=== PATIENT | female | born 1960 | race Caucasian/White ===

== ENCOUNTER 2018-04-18 10:39 | Observation (INO) | payer MEDICAID, SELFPAY ==
[2018-04-18 11:50] LABS: #Lymphocytes 0.6 thou/uL (1.20-3.40); #Monocytes 0.2 thou/uL (0.11-0.59); #Neutrophils 1.7 thou/uL (1.40-6.50); %Basophils 0.5 % (0.0-1.0); %Eosinophils 1.1 % (0.0-10.0); %Monocytes 7.5 % (0.0-10.0); %Neutrophils 66.9 % (42.0-75.0); Hemoglobin 10.5 g/dL (12.0-16.0); Mean Corpuscular Hemoglobin 32.1 pg (27.0-31.0); Mean Corpuscular Volume 94.5 fL (78.0-98.0); Mean Platelet Volume 7.1 fL (7.4-10.4); Platelet Count 124 thou/uL (130-400); Red Blood Cell (RBC) Count 3.28 mill/uL (4.20-5.40); White Blood Cell (WBC) Count 2.6 thou/uL (4.8-10.8)
[2018-04-18 12:01] LABS: Calcium 11.4 mg/dL (7.8-10.44); Chloride 98 mmol/L (98-107); Protein, Total 7.5 g/dL (6.0-8.3); Sodium 129 mmol/L (136-145)
[2018-04-18 12:05] LABS: CKMB 0.8 ng/mL (0-6.6); Troponin I Less than 0.010 ng/mL (< 0.028)
[2018-04-18 12:15] LABS: AST (SGOT) 27 U/L (5-34); Anion Gap 10 mmol/L (10-20); Bilirubin, Total 0.3 mg/dL (0.2-1.2); Calc. Creatinine Clearance 0 mL/min (70-130); Carbon Dioxide 25 mmol/L (22-29); Estimated GFR-MDRD 76
[2018-04-18 12:17] LABS: ALT (SGPT) 17 U/L (8-55); Albumin 3.2 g/dL (3.5-5.0); Alkaline Phosphatase 85 U/L (40-150); BUN (Urea Nitrogen) 18 mg/dL (9.8-20.1); Globulin 4.3 g/dL (2.4-3.5); Glucose 90 mg/dL (70-105); Lipase 77 U/L (8-78); Magnesium 1.4 mg/dL (1.6-2.6)
--- NOTE | 2018-04-18 12:46 | RAD ---
CHEST ONE VIEW: History: 57-year-old female with history of altered mental status. Two syncopal episodes. History of hyponatre keturah. Possible seizure. FINDINGS: Heart size is within normal limits. There is some minimal reticular nodular parenchymal changes in th e right upper lobe which have more the appearance of chronic change although certainly could represen t some very minimal early pneumonitis. No confluent pneumonia, overt edema, or pleural effusion. IMPRESSION: Minimal nonspecific reticular nodular parenchymal changes in the right upper lobe having more of a ch ronic appearance, although certainly some type of acute process including pneumonitis is a possibilit y. No confluent pneumonia. Atherosclerosis of the aorta. No old studies. POS: [facility]
--- NOTE | 2018-04-18 13:52 | CT ---
CT OF HEAD: Date: 04/21/18 COMPARISON: None. HISTORY: Syncopal episode, altered mental status. TECHNIQUE: Serial axial CT imaging is obtained at 5 mm intervals from the vertex through the skull base without contrast. FINDINGS: The sphenoid sinus is completely opacified and slightly expanded on the left. There is punctate calci fication within the secretions opacifying the left sphenoid sinus. The remaining paranasal sinuses, as well as the mastoid air cells, appear clear. There is no acute os seous abnormality noted. There is mild diffuse cerebral volume loss. There is no intracranial hemorrhage, midline shift, or ma ss effect. There is mild periventricular hypodensity suggesting a degree of small vessel disease. IMPRESSION: 1. Isolated, opacified, and expanded sphenoid sinus on the left. Isolated sphenoid sinus disease of this degree should be further assessed with a nonemergent follow-up contrast enhanced brain MRI. 2. Cerebral volume loss and small vessel disease with no intracranial hemorrhage. CODE T. POS: [facility]
--- NOTE | 2018-04-18 15:20 | HP ---
PRIMARY CARE PHYSICIAN: Carli Murray M.D. REASON FOR ADMISSION: Sent from [facility] for syncopal episode x2. HISTORY OF PRESENT ILLNESS: A 57-year-old female who has underlying HIV who was in shower and subsequently she had 2 syncopal episodes. The patient does not have any clue what happened [facility] prison, but she noticed that everyone was surrounding her when she was regaining consciousness. There was suspected seizure activity/syncope and that is why this patient was sent to emergency room for evaluation. Patient had significant weight loss for the last several months. She does have diagnosis of HIV for last 6 months. The patient reports that she was initially followed by David Gray, HIV doctor who prescribed antiretroviral therapy, but she ran out for last 2 weeks. She does not know her CD4 count. Patient is a very poor historian. The patient appears dehydrated and she has shrunken eyeball. She is cachectic. Patient also has good appetite, but she is losing weight. She denies any skin rash. She denies any trauma. REVIEW OF SYSTEMS: The following complete review of systems was negative, unless otherwise mentioned in the HPI or below: Constitutional: Weight loss or gain, ability to conduct usual activities. Skin: Rash, itching. Eyes: Double vision, pain. ENT/Mouth: Nose bleeding, neck stiffness, pain, tenderness. Cardiovascular: Palpitations, dyspnea on exertion, orthopnea. Respiratory: Shortness of breath, wheezing, cough, hemoptysis, fever or night sweats. Gastrointestinal: Poor appetite, abdominal pain, heartburn, nausea, vomiting, constipation, or diarrhea. Genitourinary: Urgency, frequency, dysuria, nocturia. Musculoskeletal: Pain, swelling. Neurologic/Psychiatric: Anxiety, depression. Allergy/Immunologic: Skin rash, bleeding tendency. Please see my HPI for pertinent positive and negative. All other review of systems reviewed and negative except as mentioned in the HPI. PAST MEDICAL HISTORY: HIV. PAST PSYCHIATRIC HISTORY: Anxiety and depression. PAST SURGICAL HISTORY: Transgender sex change in 1989 with breast implant. SOCIAL HISTORY: Patient denies any tobacco, alcohol or illicit drug abuse. She lives at [facility]. FAMILY HISTORY: No strong family history of premature coronary artery disease, stroke or cancer. ADDITIONAL INFORMATION: The patient is wheelchair bound. Her mother is taking care of her. EMERGENCY ROOM COURSE: Reviewed. ALLERGY: Sulfa CURRENT HOME MEDICATION: Remeron, HIV medication she ran out, PHYSICAL EXAMINATION: VITAL SIGNS: On arrival, blood pressure 96/63, pulse 87, respiratory rate 16, temperature 97.7, saturation 95% on room air and weight 45.3 kilograms. GENERAL: Patient is cachectic, appears malnourished. HEAD: Normocephalic, atraumatic. EYES: Sunken eyeball. Pupils round, reactive to light. ENT: Dry mucous membrane, no oral lesion, no pharyngeal erythema, no exudate, no thrush. NECK: Supple, no JVD, no thyromegaly, no carotid bruit. LUNGS: Clear to auscultation without any rhonchi or rales. CARDIAC: S1 and S2 regular. No murmur, no gallop, no rub. ABDOMEN: Soft, bowel sounds present. Shrunken abdomen. No suprapubic tenderness. BACK: Examination unremarkable, no CVA tenderness. EXTREMITIES: Upper extremity passive movement of all joints are normal. Lower extremities: No edema. Good peripheral pulsation. SKIN: No skin rash other than skin tear noted on the left leg. NEUROLOGIC: Nonfocal examination. PSYCHIATRIC: Normal affect. IMAGING DATA AND SIGNIFICANT LABORATORY DATA: EKG showing normal sinus rhythm within normal limits. CT brain based on my review, no acute intracranial process. Chest x-ray based on my review, chronic changes without any acute process. CBC: WBC 2.6, hemoglobin 10.5 and platelet 124. BMP: Sodium 129, potassium 4.0, chloride 98, carbon dioxide 25, anion gap 10, BUN 18, creatinine 0.78, glucose 90, calcium 11.4, magnesium 1.4. LFT: AST 27, ALT 17, alkaline phosphatase 85, albumin 3.2. Cardiac enzymes negative. Prolactin 34.6. EKG showing normal sinus rhythm within normal limits. ASSESSMENT AND PLAN/IMPRESSION: 1. Syncope/seizure. 2. Hyponatremia due to dehydration. 3. Hypomagnesemia. 4. Hypercalcemia due to volume depletion. 5. Leukopenia, thrombocytopenia and anemia due to human immunodeficiency virus. 6. Pancytopenia due to human immunodeficiency virus. 7. Moderate protein calorie malnutrition. 8. Anxiety and depression. 9. Human immunodeficiency virus positive. 10. Medication noncompliance. 11. Physical deconditioning. 12. Hypertension. PLAN: 1. Observation to telemetry floor, echocardiography, orthostatic vitals, MRI brain, serial cardiac enzymes to rule out acute coronary syndrome. IV fluid with NS 800 mL per hour. Repeat and check HIV and CD4 count. Replace magnesium and check magnesium tomorrow. Check TSH. 2. Deep venous thrombosis prophylaxis, SCD boots. 3. Gastrointestinal prophylaxis, Pepcid 20 mg p.o. b.i.d. Nutritional supplementation with Ensure t.i.d. CODE STATUS: The patient is FULL CODE. Patient's mother is surrogate decision maker. Disposition plan based on clinical course. If patient's condition does not improve within 24 hours, then we will consider changing to inpatient status. MTDD
[2018-04-18] MEDS ORDERED: Loratadine 10 MG TAB PO PRN (17:12)
[2018-04-18] MEDS ORDERED: Artificial Tears 18 DROP/0.9 ML EA EYE PRN (17:12)
[2018-04-18] MEDS ORDERED: Diabetic Tussin 200 MG/10 ML UDCUP PO PRN (17:12)
[2018-04-18] MEDS ORDERED: Senokot 8.6 MG TAB PO PRN (17:12)
[2018-04-18] MEDS ORDERED: Chloraseptic Spray 180 ml Bottle PO PRN (17:12)
[2018-04-18] MEDS ORDERED: Mag-Al 1200 mg/1200 mg/30 ML UDCUP PO PRN (17:12)
[2018-04-18] MEDS ORDERED: Ondansetron ODT 4 MG TAB PO PRN (17:12)
[2018-04-18] MEDS ORDERED: hydrALAZINE 20 MG/ML VIAL SLOW IVP PRN (17:12)
[2018-04-18] MEDS ORDERED: Sodium Chloride 0.65% Nasal 44 ML BOT EA NARE PRN (17:12)
[2018-04-18] MEDS ORDERED: Loperamide HCl 2 MG CAP PO PRN (17:12)
[2018-04-18] MEDS ORDERED: Ondansetron HCl/PF 4 MG/2 ML Vial IVP PRN (17:12)
[2018-04-18] MEDS ORDERED: Zolpidem Tartrate 5 MG TAB PO PRN (17:12)
[2018-04-18] MEDS ORDERED: Milk Of Magnesia 30 ML UDCUP PO PRN (17:12)
[2018-04-18] MEDS ORDERED: Eucerin (Mineral Oil/Petrolatum,White) 30 gm Jar TOP PRN (17:12)
[2018-04-18] MEDS ORDERED: HYDROcodone/Acetaminophen 5/325 mg Tablet PO PRN (17:12)
[2018-04-18] MEDS ORDERED: Acetaminophen 325 MG TAB PO PRN (17:12)
[2018-04-18] MEDS ORDERED: Magnesium Sulfate 4 GM in Sodium Chloride 0.9% 250 ML 250 ML IVPB SCH (17:15)
[2018-04-18] MEDS: Sodium Chloride 0.9% 1,000 ML IV SCH ×2 (18:03→18:20)
[2018-04-18 18:23] LABS: Troponin I Less than 0.010 ng/mL (< 0.028)
[2018-04-18 18:43] VITALS: BMI 14.7
[2018-04-18] MEDS: Famotidine 20 MG TAB PO SCH (20:38)
[2018-04-19 05:39] LABS: Anion Gap 9 mmol/L (10-20); BUN (Urea Nitrogen) 17 mg/dL (9.8-20.1); CK (CPK) 14 U/L (29-168); Calc. Creatinine Clearance 58 mL/min (70-130); Calcium 10.3 mg/dL (7.8-10.44); Carbon Dioxide 25 mmol/L (22-29); Cardiac Risk 4.2 (Less than 4.5); Chloride 100 mmol/L (98-107); Cholesterol 101 mg/dl (< 200 Desired); Estimated GFR-MDRD 70; Glucose 101 mg/dL (70-105); HDL Cholesterol 24 mg/dL (>60 Neg Risk); LDL Cholesterol, Calculated 57 mg/dL; Magnesium 2.5 mg/dL (1.6-2.6); Potassium 3.5 mmol/L (3.5-5.1); Sodium 130 mmol/L (136-145); Triglycerides 98 mg/dL (Less than 150)
[2018-04-19 05:56] LABS: #Eosinphils 0.1 thou/uL (0.0-0.7); #Lymphocytes 0.5 thou/uL (1.20-3.40); #Monocytes 0.2 thou/uL (0.11-0.59); #Neutrophils 1.3 thou/uL (1.40-6.50); %Basophils 0.7 % (0.0-1.0); %Eosinophils 2.9 % (0.0-10.0); %Lymphocytes 24.4 % (21.0-51.0); %Monocytes 10.2 % (0.0-10.0); %Neutrophils 61.8 % (42.0-75.0); Hemoglobin 8.6 g/dL (12.0-16.0); Mean Corpuscular HGB CONC 34.3 g/dL (32.0-36.0); Mean Corpuscular Hemoglobin 32.8 pg (27.0-31.0); Mean Corpuscular Volume 95.7 fL (78.0-98.0); Mean Platelet Volume 7.2 fL (7.4-10.4); Platelet Count 104 thou/uL (130-400); Red Blood Cell (RBC) Count 2.61 mill/uL (4.20-5.40); White Blood Cell (WBC) Count 2.1 thou/uL (4.8-10.8)
[2018-04-19 05:57] LABS: Thyroid Stimulating Hormone 2.6323 uIU/mL (0.35-4.94)
[2018-04-19] MEDS: Sodium Chloride 0.9% 1,000 ML IV SCH ×3 (06:36→06:51)
[2018-04-19 06:57] LABS: HIV (1/2) Antibody/Antigen Reflxed Confirmation (NonReactive)
[2018-04-19 06:58] LABS: HIV 1/2 INDEX 598.11 S/CO (<1.00)
[2018-04-19] MEDS: Famotidine 20 MG TAB PO SCH (09:14)
--- NOTE | 2018-04-19 10:32 | PDOC.PN ---
- Subjective Encounter Start Date: 04/19/18 Encounter Start Time: 07:40 -: old records requested/rev Patient seen and examined. No new complaints. No overnight events - Objective Resuscitation Status: Resuscitation Status FULL:Full Resuscitation MAR Reviewed: Yes Vital Signs & Weight: Vital Signs (12 hours) Temp Pulse Resp BP BP BP Pulse Ox 04/19/18 08:18 97.7 F 60 16 114/66 103/61 97 04/19/18 03:55 98.0 F 70 20 98/58 L 100 04/18/18 23:29 98.8 F 74 18 105/55 L 98 Weight Admit Weight 108 lb 12.8 oz Weight 108 lb 8 oz I&O: 04/18/18 04/19/18 04/20/18 06:59 06:59 06:59 Intake Total 1892 Balance 1892 Result Diagrams: 04/19/18 05:01 04/19/18 05:02 EKG Reviewed by me: Yes (nsr) Phys Exam - Physical Examination Constitutional: NAD HEENT: PERRLA, moist MMs, sclera anicteric Neck: no JVD, supple Respiratory: no wheezing, no rales, no rhonchi Cardiovascular: RRR, no significant murmur, no rub Gastrointestinal: soft, non-tender, no distention, positive bowel sounds Musculoskeletal: no edema, pulses present Neurological: non-focal, normal sensation Psychiatric: normal affect, A&O x 3 Skin: no rash, normal turgor Dx/Plan (1) Dehydration Code(s): E86.0 - DEHYDRATION Status: Acute (2) Hyponatremia Code(s): E87.1 - HYPO-OSMOLALITY AND HYPONATREMIA Status: Acute (3) Syncope Code(s): R55 - SYNCOPE AND COLLAPSE Status: Acute (4) HIV (human immunodeficiency virus infection) Status: Chronic (5) Pancytopenia Code(s): D61.818 - OTHER PANCYTOPENIA Status: Chronic (6) Protein-calorie malnutrition, moderate Code(s): E44.0 - MODERATE PROTEIN-CALORIE MALNUTRITION Status: Chronic (7) Hypercalcemia Code(s): E83.52 - HYPERCALCEMIA Status: Resolved (8) Hypomagnesemia Code(s): E83.42 - HYPOMAGNESEMIA Status: Resolved - Plan cont current plan of care * now stabilized * today MRI and echo * will discharge later today if normal * medication reviewed as below * symptomatic treatment. Review of Systems - Review of Systems ENT: negative: Ear Pain, Ear Discharge, Nose Pain, Nose Discharge, Nose Congestion, Mouth Pain, Mouth Swelling, Throat Pain, Throat Swelling, Other Respiratory: negative: Cough, Dry, Shortness of Breath, Hemoptysis, SOB with Excertion, Pleuritic Pain, Sputum, Wheezing Cardiovascular: negative: chest pain, palpitations, orthopnea, paroxysmal nocturnal dyspnea, edema, light headedness, other Gastrointestinal: negative: Nausea, Vomiting, Abdominal Pain, Diarrhea, Constipation, Melena, Hematochezia, Other Genitourinary: negative: Dysuria, Frequency, Incontinence, Hematuria, Retention , Other Musculoskeletal: negative: Neck Pain, Shoulder Pain, Arm Pain, Back Pain, Hand Pain, Leg Pain, Foot Pain, Other Skin: negative: Rash, Lesions, Raymon, Bruising, Other - Medications/Allergies Allergies/Adverse Reactions: Allergies Allergy/AdvReac Type Severity Reaction Status Date / Time Sulfa (Sulfonamide Allergy Verified 04/19/18 06:36 Antibiotics) Medications: Current Medications Acetaminophen (Tylenol) 650 mg PO Q4H PRN PRN Reason: Headache/Fever or Pain Hydrocodone Bitart/Acetaminophen ([place] 5/325) 1 tab PO Q4H PRN PRN Reason: Moderate Pain (4-6) Al Hydroxide/Mg Hydroxide (Maalox) 30 ml PO Q6H PRN PRN Reason: Heartburn or Indigestion Artificial Tears (Tears Naturale) 0 drop EA EYE PRN PRN PRN Reason: Dry Eyes Famotidine (Pepcid) 20 mg PO BID [facility] Last Admin: 04/19/18 09:14 Dose: 20 mg Guaifenesin (Robitussin Sf) 200 mg PO Q4H PRN PRN Reason: Cough Hydralazine HCl (Apresoline) 10 mg SLOW IVP Q4H PRN PRN Reason: Systolic BP > 180 Sodium Chloride (Normal Saline 0.9%) 1,000 mls @ 100 mls/hr IV .Q10H [facility] Last Admin: 04/19/18 06:51 Dose: 1,000 mls Loperamide HCl (Imodium) 2 mg PO PRN PRN PRN Reason: Diarrhea/Loose Stools Loratadine (Claritin) 10 mg PO DAILYPRN PRN PRN Reason: Sinus Symptoms Magnesium Hydroxide (Milk Of Magnesium) 30 ml PO DAILYPRN PRN PRN Reason: Constipation Mineral Oil/White Petrolatum (Eucerin Cream) 0 gm TOP BIDPRN PRN PRN Reason: Dry Skin Ondansetron HCl (Zofran Odt) 4 mg PO Q6H PRN PRN Reason: Nausea/Vomiting Ondansetron HCl (Zofran) 4 mg IVP Q6H PRN PRN Reason: Nausea/Vomiting Phenol (Chloraseptic [place] 180 Ml Bot) 0 ml PO PRN PRN PRN Reason: Sore Throat Senna (Senokot) 2 tab PO HSPRN PRN PRN Reason: Constipation Sodium Chloride ([place] Nasal [place] 0.65%) 0 ml EA NARE QIDPRN PRN PRN Reason: Nasal Congestion Zolpidem Tartrate (Ambien) 5 mg PO HSPRN PRN PRN Reason: Insomnia
--- NOTE | 2018-04-19 12:55 | DIS ---
DATE OF ADMISSION: 04/18/2018 DATE OF DISCHARGE: 04/19/2018 PRIMARY CARE PHYSICIAN: Dr. Boyce. DISCHARGE DISPOSITION: [facility]. PRIMARY DISCHARGE DIAGNOSES: Syncope due to volume depletion, hyponatremia, dehydration, hypomagnesemia and hypercalcemia. SECONDARY DISCHARGE DIAGNOSES: Human immunodeficiency virus infection, moderate protein calorie malnutrition and pancytopenia. PRIMARY PROCEDURE/OPERATION: None. RADIOLOGICAL INVESTIGATION: Chest x-ray showed no acute process. CT brain negative for any acute intracranial process. MRI brain result is pending. Echocardiography result is pending. SIGNIFICANT LABORATORY DATA: WBC 2.1, hemoglobin 8.6, platelet 104. Sodium 130 , creatinine 0.84, magnesium 2.5, LDL 57, TSH 2.63. Liver enzymes normal. Prolactin 34. HIV positive. DISCHARGE MEDICATIONS: Following our scheduled medications, vitamin B12 1000 mcg p.o. daily, Stribild one tablet p.o. at bedtime, ferrous sulfate 325 mg p.o. daily, folic acid 1 mg p.o. daily, multivitamin 1 tablet p.o. daily. CONTRAINDICATIONS: None. CODE STATUS: FULL CODE. INPATIENT CONSULTANTS: None. ALLERGIES: SULFA DRUGS. DISCHARGE PLAN: Post hospital, patient is advised to follow up with Dr. Allen for HIV medication. HOSPITAL COURSE: A 57-year-old female who lives at [facility] where she had episode of syncope/seizure. The patient came out from shower and after that she passed out. She clinically appeared dehydrated. She was not taking HIV medication because she ran out her HIV medication. She had hyponatremia because of volume depletion. She had hypomagnesemia which was corrected. Hypercalcemia improved after correction of dehydration. There was concern of seizure and that is why we did MRI brain. If MRI brain is unremarkable, then we will consider [facility]. While in hospital, patient did not have any seizure activity. She remained hemodynamically stable. Her telemetry remained unremarkable. The patient was given IV fluid and now she is back to her normal level. The patient is seen and examined at bedside today. Please see my progress note from today for further detail. Paperwork for discharge done. Discharge medication reconciliation done. We are expecting patient discharge later on today after MRI and echo result. MRI is normal MTDD
--- NOTE | 2018-04-19 14:17 | MRI ---
BRAIN MRI WITH AND WITHOUT CONTRAST: HISTORY: Abnormal head CT finding. Left sphenoid sinus opacification. Evaluate for possible infection in a p atient who is immunocompromised. Syncopal episode. Altered mental status. COMPARISON: None. CORRELATION: Head CT from 03/29/2018. TECHNIQUE: A brain MRI is performed with and without intravenous Gadolinium administration. Multisequential, mu ltiplanar imaging is performed. FINDINGS: No hemorrhage on the axial gradient echo sequence. No parenchymal mass, mass effect, or midline shift. Brain volume is less than expected for the patie nt's age. Cortical soriano white matter differentiation is preserved. The ventricles and sulci are pat ent and symmetric. T2 and FLAIR white matter hyperintensities are probably due to chronic small vessel ischemic change. Central arterial flow voids are maintained. Absent restricted diffusion. There is no pathologic enhancement of the brain parenchyma. The calvarium has a normal T1 marrow signal intensity The midline brain parenchymal structures are u nremarkable. There is opacification of the left sphenoid sinus with extensive and essentially circumferential muco myra enhancement. The osseous margins of the sphenoid sinus appear to be intact without obvious intra cranial extension. There is no abnormal enhancement posterior to the sphenoid sinus/clivus. There i s no abnormal enhancement of the left middle cranial fossa/anterior pole of the left temporal lobe. IMPRESSION: 1. No acute intracranial process. No abnormal enhancement of the brain parenchyma. No restricted d iffusion. 2. Opacification of the left sphenoid sinus presumed to be sinus disease, likely fungal. No obvious enhancement in the adjacent intracranial structures. POS: [facility]
[2018-04-19 17:14] VITALS: BP 125/70; TEMP 98.3
[2018-04-20 12:17] LABS: %CD4 (Helper/Inducer) 2.7 % (30.8-58.5); Absolute CD4 11 /uL (359-1519); Lymphocytes/Gated Cell Count 0.4 x10E3/uL (0.7-3.1); Total Lymphocyte 21 % (Not Estab.)
[2018-04-20 15:26] LABS: HIV 1 Antibody Multi-Spot Positive (Negative); HIV 2 Antibody Multi-Spot Negative (Negative); HIV Multi-spot Interp HIV-1 Positive (.)
--- NOTE | 2018-04-22 14:31 | EKG ---
Test Reason : Blood Pressure : / mmHG Vent. Rate : 084 BPM Atrial Rate : 084 BPM P-R Int : 110 ms QRS Dur : 100 ms QT Int : 382 ms P-R-T Axes : 067 089 073 degrees QTc Int : 451 ms Sinus rhythm with short MO Otherwise normal ECG Confirmed by CURT LEIGH ([id number]), editor trade journal RAACELIS MOON ([id number]) on 04/22/2018 2:31:39 PM Referred By: Confirmed By:CURT LEIGH
== END 2018-04-19 17:10 ==
LOC: ERS 10:39 → 2NO 16:01
PROVIDERS: ADMIT Internal Medicine; ATTEND Internal Medicine
DX: E86.0 Dehydration (principal); E87.1 Hypo-osmolality and hyponatremia; E83.42 Hypomagnesemia; E83.52 Hypercalcemia; E44.0 Moderate protein-calorie malnutrition; D61.818 Other pancytopenia; Z88.2 Allergy status to sulfonamides; Z79.899 Other long term (current) drug therapy
CPT/HCPCS: 36415; 70450; 70553; 71045; 80048; 80053; 80061; 82550; 82553; 83690; 83735; 84146; 84443; 84484; 85025; 85048; 86361; 86701; 86702; 87389; 93005; 93306; 96360; 96361; G0378; J3475; J7050

== ENCOUNTER 2018-08-15 12:19 | Inpatient (IN) | payer MEDICAID, OTHER ==
[2018-08-15 12:57] LABS: Hemoglobin 10.5 g/dL (12.0-16.0); Mean Corpuscular HGB CONC 31.9 g/dL (32.0-36.0); Mean Corpuscular Hemoglobin 29.7 pg (27.0-31.0); Mean Platelet Volume 6.4 fL (7.4-10.4); Platelet Count 226 thou/uL (130-400); RBC Distribution Width 12.9 % (11.5-14.5); Red Blood Cell (RBC) Count 3.55 mill/uL (4.20-5.40); White Blood Cell (WBC) Count 3.6 thou/uL (4.8-10.8)
[2018-08-15 13:22] LABS: Band 10 % (5-11); Dohle Bodies SLIGHT; Eosinophils 2 % (0-10); Lymphocytes 28 % (21-51); MDiff Complete? YES; Monocytes 4 % (0-10); Neutrophil 54 % (42-75); Ovalocytes SLIGHT = 2-5 cells (100X) (0-1/hpf); PLT Morphology Comment Appears Adequate; Polychromasia SLIGHT = 2-3 cells (100X) (0-2/hpf); Reactive Lymphocytes 2 % (0-10); Toxic Granulation SLIGHT
--- NOTE | 2018-08-15 13:22 | RAD ---
AP CHEST: History: Altered mental status. Date: 08-15-18 Comparison: 04-18-18 FINDINGS: AP chest demonstrates the lungs to be well aerated. No evidence of active intrathoracic disease is se en. No evidence of effusions, pneumonia, or pneumothorax is seen. Calcification of the aorta is seen. IMPRESSION: Unremarkable AP chest. POS: [facility]
[2018-08-15 13:23] LABS: ALT (SGPT) 9 U/L (8-55); AST (SGOT) 18 U/L (5-34); Albumin 2.9 g/dL (3.5-5.0); Alkaline Phosphatase 81 U/L (40-150); Anion Gap 11 mmol/L (10-20); BUN (Urea Nitrogen) 23 mg/dL (9.8-20.1); Bilirubin, Total 0.4 mg/dL (0.2-1.2); CK (CPK) Less than 9 U/L (29-168); Calc. Creatinine Clearance 0 mL/min (70-130); Carbon Dioxide 26 mmol/L (22-29); Chloride 91 mmol/L (98-107); Estimated GFR-MDRD 52; Globulin 4.2 g/dL (2.4-3.5); Glucose 95 mg/dL (70-105); Potassium 3.5 mmol/L (3.5-5.1); Protein, Total 7.1 g/dL (6.0-8.3); Sodium 124 mmol/L (136-145)
[2018-08-15 13:25] LABS: CKMB 0.3 ng/mL (0-6.6); Calcium 14.2 mg/dL (7.8-10.44); Troponin I Less than 0.010 ng/mL (< 0.028)
--- NOTE | 2018-08-15 13:29 | CT ---
CT HEAD WITHOUT CONTRAST: INDICATIONS: Mental status change. COMPARISON: 04/18/2018 TECHNIQUE: Multiple axial tomograms obtained through the head without IV enhancement. FINDINGS: Cortical volume loss is seen, more prominent than expected for the patient's age. Chronic ischemic w ceci matter changes are also more prominent than expected, but stable. Mild ventriculomegaly, probab ly proportionate to the degree of atrophy. No evidence of intracranial mass, hemorrhage, or infarct. Opacification of the left sphenoid sinus is again seen and has been described previously, unchanged. IMPRESSION: Stable findings, as described above. POS: [facility]
[2018-08-15] MEDS ORDERED: Acetaminophen 325 MG TAB PO PRN (17:46)
[2018-08-15] MEDS ORDERED: Sodium Chloride 0.9% 1,000 ML IV SCH (18:00)
[2018-08-15 18:47] LABS: Anion Gap 8 mmol/L (10-20); BUN (Urea Nitrogen) 23 mg/dL (9.8-20.1); Calc. Creatinine Clearance 0 mL/min (70-130); Carbon Dioxide 25 mmol/L (22-29); Chloride 98 mmol/L (98-107); Estimated GFR-MDRD 59; Glucose 88 mg/dL (70-105); Potassium 3.4 mmol/L (3.5-5.1); Sodium 128 mmol/L (136-145)
[2018-08-15 18:51] LABS: Calcium 13.2 mg/dL (7.8-10.44)
[2018-08-15] MEDS: Famotidine 20 MG TAB PO SCH (20:37)
--- NOTE | 2018-08-15 23:30 | HP ---
DATE OF ADMISSION: 08/15/2018 CHIEF COMPLAINT: The patient reports she was referred here for abnormal labs. HISTORY OF PRESENT ILLNESS: This patient is a 57-year-old male who is a transsexual with a transgender surgery and breast implants in 1989, who presented to the Emergency Department from the [facility] in [place]. The patient has some dementia and has some difficulty giving full history, although she is quite willing to do so and quite convincing, the patient's mother and sister have contradicted basically everything that she has told us. They indicated that they had some labs obtained and had spoken to Dr. Allen, who apparently follows her for her HIV and he had recommended that she come to the hospital for further evaluation. 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 Allen said he could not rule out potential CAMPUS MANAGER infection or other disease at that time and wanted her to be evaluated further. The patient reports feeling completely normal with no specific complaints at this time. The only thing she talks about is occasionally having some abdominal pain that feels like she needs to have a bowel movement. She reports that she has been profoundly constipated, but the family indicates that is not at all the case and that she has had 2 bowel movements since she has been here. Family also reports the patient will not eat. The patient indicates she would be delighted to eat anything, but the family states that they will bring her whatever she requests and she typically will not eat more than one or two bites. The patient reports that she drinks 1-2 gallons of water per day. Family reports that that is absolutely not the case and that she is drinking very little. The family also has a weight chart over the last several months. The patient has come down from 112 to about 100 pounds. REVIEW OF SYSTEMS: Again, entirely unreliable based on the patient's mental and cognitive issues. The patient's family does report that she does seem to be cold frequently and have some chills, but she and the family deny any fever that they are aware of. Family also reports that the patient has intermittently taking her HIV antiretrovirals, but will go for long periods where she does not because of depression or various issues, and then she will bounce back, start eating a bit, gain little weight, take her meds, and then she will decide to go off them again for an extended period of time. PAST MEDICAL HISTORY: As noted above, significant for the HIV infection. She was admitted here in March with episode of syncope. She was hyponatremic at that time due to dehydration. She was also hypercalcemic at that time. She at that time appeared to have protein-calorie malnutrition, some history of anxiety and depression, severe deconditioning. The patient reports that she has been in the [facility] for several months because she is unable to walk and she does not know why. Of note, the patient did have an MRI of the brain at that time, which revealed no acute intracranial processes. SOCIAL HISTORY: As stated above, the patient lives in a fci in [place]. She is a nonsmoker, nondrinker, nondrug user. FAMILY HISTORY: Negative for coronary disease, stroke, or cancer. PAST SURGICAL HISTORY: Transgender sex change in 1989 with breast implants. ALLERGIES: SULFA. CURRENT MEDICATIONS: Not known. Neither the patient nor the family know current medication list. We are attempting to get that from the fci. At the time of her discharge at the end of March from this facility, she was on B12, iron, folic acid, multivitamin, Phenergan, Compazine, Naprosyn, and Dulcolax only. PHYSICAL EXAMINATION: VITAL SIGNS: Temperature 97.8, BP 123/88, pulse 74, respirations 20, O2 sats 98 % on room air. GENERAL APPEARANCE: The patient appears much older than stated age, very frail , and generally cachectic, but awake, alert, and very interactive. HEENT: PERRL. No OP lesions. Essentially edentulous. NECK: Supple and symmetric without lymphadenopathy or bruits. HEART: Regular rate and rhythm without murmurs, gallops, or rubs. LUNGS: Clear to auscultation bilaterally with good chest wall expansion and air exchange. ABDOMEN: Soft, nontender, nondistended. Positive bowel sounds. No masses, no organomegaly. EXTREMITIES: Warm and dry without edema. LABORATORY DATA: White count 3.6, hemoglobin 10.5, platelets 226. Sodium 124, potassium 3.5, chloride 91, CO2 of 26, BUN 23, creatinine 1.09, glucose 95, calcium 14.2, AST is 18, ALT is 9, CK less than 9, albumin 2.9. Chest x-ray is unremarkable. CT of the brain showed some left sphenoid opacification, which is chronic, nothing otherwise acute. Also, troponin is less than 0.01. IMPRESSION AND PLAN: 1. Hyponatremia, appears to be secondary to poor nutritional intake and hydration. The patient has received a liter of normal saline in the Emergency Department prior to labs being known. Certainly, we want to go slowly with the volume resuscitation at this point. We will start on normal saline at 50 mL an hour and recheck a BMP now. 2. Severe hypercalcemia. The patient has a history of hypercalcemia with dehydration and I suspect that is issue again. It is possible she could have some hypercalcemia in response to some antiretroviral medications, but it is not known if she is taking this at this time. Should improve with hydration; however, cannot be overly aggressive given her hyponatremia. We will gently hydrate and recheck in the morning. 3. Anorexia. The patient appears to not be eating and drinking well. Certainly possible that the patient has some age related or human immunodeficiency virus related cachexia and dementia contributing as well. We will ask the dietitian to see her. 4. Leukopenia and human immunodeficiency virus. We will ask Dr. Allen to see the patient to help clarify what regimen she should be on and if there is any further workup that needs to be entertained given her hypercalcemia situation. 5. Dementia. Appears to be more chronic at this time, could be related to some hyponatremia or hypercalcemia. We will continue to monitor if she improves. We will recheck an MRI; however, I think it is probably low yield, given the fact that she had one back in March. Certainly, it may be reasonable to have conversations about palliative care at some point if we can effectively assess for other reversible causes. 5. Deep venous thrombosis and peptic ulcer disease prophylaxis. MTDD
[2018-08-16 06:41] LABS: Anion Gap 10 mmol/L (10-20); BUN (Urea Nitrogen) 21 mg/dL (9.8-20.1); Calc. Creatinine Clearance 52 mL/min (70-130); Carbon Dioxide 22 mmol/L (22-29); Chloride 97 mmol/L (98-107); Estimated GFR-MDRD 67; Glucose 72 mg/dL (70-105); Potassium 3.4 mmol/L (3.5-5.1); Sodium 126 mmol/L (136-145)
[2018-08-16 06:48] LABS: Calcium 13.3 mg/dL (7.8-10.44)
[2018-08-16] MEDS ORDERED: Hyoscyamine Sulfate SL 0.125 mg Tablet SL PRN (07:54)
[2018-08-16] MEDS ORDERED: Lorazepam 0.5 MG TAB PO PRN (07:54)
[2018-08-16] MEDS ORDERED: HYDROXYZINE PAMOATE 50 MG PO PRN (07:54)
[2018-08-16] MEDS ORDERED: hydrOXYzine Pamoate 25 mg Capsule PO PRN (08:22)
[2018-08-16 08:42] LABS: Band 9 % (5-11); Eosinophils 5 % (0-10); Hemoglobin 8.7 g/dL (12.0-16.0); Lymphocytes 8 % (21-51); MDiff Complete? YES; Mean Corpuscular HGB CONC 33.1 g/dL (32.0-36.0); Mean Corpuscular Hemoglobin 30.9 pg (27.0-31.0); Mean Corpuscular Volume 93.5 fL (78.0-98.0); Mean Platelet Volume 6.7 fL (7.4-10.4); Monocytes 28 % (0-10); Neutrophil 49 % (42-75); PLT Morphology Comment Appears Adequate; Platelet Count 182 thou/uL (130-400); Polychromasia SLIGHT = 2-3 cells (100X) (0-2/hpf); RBC Distribution Width 12.9 % (11.5-14.5); White Blood Cell (WBC) Count 2.1 thou/uL (4.8-10.8)
[2018-08-16] MEDS ORDERED: Non-Formulary Item 1 EACH (Ferrous Sulfate [Ferrous Sulfate] 325 MG) PO SCH (09:00)
[2018-08-16] MEDS: Multivitamin W/ Minerals 1 TAB PO SCH (09:26)
[2018-08-16] MEDS: Famotidine 20 MG TAB PO SCH ×2 (09:27→21:04)
[2018-08-16] MEDS: Ferrous Sulfate 325 MG TAB PO SCH (09:27)
[2018-08-16] MEDS: Enoxaparin Sodium 40 MG/0.4 ML SYRINGE SC SCH (09:27)
[2018-08-16] MEDS: Folic Acid 1 MG TAB PO SCH (09:27)
[2018-08-16] MEDS: Cyanocobalamin (Vitamin B-12) 1,000 MCG TAB PO SCH (09:27)
[2018-08-16] MEDS ORDERED: ISOVUE-370 76%-LOCM 1 ML ONE (11:21)
--- NOTE | 2018-08-16 12:12 | CON ---
DATE OF CONSULTATION: 08/16/2018 REASON FOR CONSULTATION: Hyponatremia. HISTORY OF PRESENT ILLNESS: This is a 57-year-old female who was admitted with chronic failure to [facility] and was noted to have a sodium of 126. I was consulted. The patient is getting normal saline a nd is not eating much. The patient denies any nausea, vomiting or chest pain. PAST MEDICAL HISTORY: 1. HIV. 2. Syncope. 3. Hyponatremia, improving. 4. Protein calorie malnutrition. 5. Deconditioning. SOCIAL HISTORY: No alcohol. FAMILY HISTORY: Negative for ESRD. PAST SURGICAL HISTORY: Significant for tonsils and ____. HOME MEDICATIONS: List reviewed. HOSPITAL MEDICATIONS: List reviewed. REVIEW OF SYSTEMS: A 15-point review of systems was performed and negative except for noted above. GENERAL: Weakness- HEAD: Headache- NECK: No swelling or lumps. NOSE: No epistaxis or discharge. EYES: No diplopia or pain. 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 NEUROPSYCHIATIC SYSTEMS: No suicidal ideation. No ideation. SKIN: Denies any rash or ulcer. CONSTITUTIONAL: No fever or chills. PHYSICAL EXAMINATION: GENERAL: Patient is awake. VITAL SIGNS: Afebrile, pulse 72, breathing 16, blood pressure 104/60. OBJECTIVE: See above. Awake, alert, in no acute distress. GENERAL APPEARANCE AND MENTAL STATUS: Fair. HEAD/NECK: Normocephalic. Atraumatic. EYES: EOMI. No deformity. EARS: Clear. No ulcers. NOSE: Intact. No lesions. MOUTH: Clear. No discharge. THROAT: Clear. No exudate. LUNGS: Clear. No crackles. CARDIAC: S1, S2. No rub. ABDOMEN: Benign. BS+. GENITALIA/RECTUM: Olmedo absent. BACK/EXTREMITIES: Edema 0+ Ulcer- NEUROLOGICAL: Alert and motor intact. SKIN: Rash- Bruise- LYMPHATICS: Edema- Ulcer- LABORATORY: Potassium 3.4, sodium 126, creatinine 0.87. ASSESSMENT AND RECOMMENDATIONS: 1. Chronic kidney disease stage 2, stable. 2. Hyponatremia because of syndrome of inappropriate antidiuretic hormone secretion, recommend fluid restriction 800 mL. Would recommend getting ____. 3. Hypercalcemia, would recommend checking vitamin D level and order a malignancy workup. 4. Pancytopenia. Overall prognosis is extremely poor.
[2018-08-16 12:30] LABS: Anion Gap 7 mmol/L (10-20); BUN (Urea Nitrogen) 20 mg/dL (9.8-20.1); Calc. Creatinine Clearance 52 mL/min (70-130); Carbon Dioxide 25 mmol/L (22-29); Chloride 97 mmol/L (98-107); Estimated GFR-MDRD 66; Glucose 93 mg/dL (70-105); Sodium 126 mmol/L (136-145)
[2018-08-16 12:39] LABS: Calcium 13.2 mg/dL (7.8-10.44); Potassium 2.9 mmol/L (3.5-5.1)
[2018-08-16] MEDS ORDERED: Potassium Chloride 20 MEQ TAB PO SCH (13:00)
[2018-08-16 13:11] LABS: Thyroid Stimulating Hormone 2.3404 uIU/mL (0.35-4.94)
--- NOTE | 2018-08-16 13:56 | MRI ---
NONCONTRAST ENHANCED MRI IMAGES OF THE BRAIN: History: Altered mental status. FINDINGS: Images demonstrate diffuse cortical atrophy and deep white matter ischemic changes. No evidence of areas of diffusion restriction seen to suggest acute strokes. No evidence of acute or old intracranial hemorrhages seen. Normal flow voids seen in the major intracranial vessels. There does appear to be some posterior left ethmoid sinus mucosal thickening seen. There is also complete opacification of the left sphenoid sin us. IMPRESSION: No evidence of acute intracranial pathology seen. Paranasal sinus disease is present as described abo ve. POS: [facility]
--- NOTE | 2018-08-16 15:36 | PRG ---
DATE OF SERVICE: 08/16/2017 SUBJECTIVE: The patient states she feels well. She is without complaints. Nurse reports that she did eat some breakfast. She has not eaten much once. She says she is saving it to eat with her dinner. PHYSICAL EXAMINATION: VITAL SIGNS: T-max 97.6, pulse 73, respirations 18, O2 sat 97% on room air, BP 102/71. GENERAL APPEARANCE: Age appropriate, in no distress, very cachectic in appearance with significant muscle wasting of the temporalis area. HEART: Regular rate and rhythm without murmurs. LUNGS: Clear to auscultation bilaterally with good chest wall expansion and air exchange. ABDOMEN: Soft, nontender, nondistended, positive bowel sounds, no masses, no organomegaly. EXTREMITIES: With significant sarcopenia, but no edema and good circulation. LABORATORY DATA: Sodium 126, potassium 4.3, chloride 97, CO2 of 25, BUN is 20, creatinine 0.88, glucose 66, calcium is 13.2. ASSESSMENT: 1. Hyponatremia, appears to be fairly stable and did not improve significantly with some volume repletion. I have consulted Nephrology and I discussed the case extensively deferring for further evaluation. 2. Hypercalcemia. The patient's calcium was high in the previous admission but did improve at that time with some hydration. It has not improved significantly on this admission with some hydration. Again, discussed extensively with Nephrology. Ordering metabolic studies in order to look for potential sources of the underlying hypercalcemia. At this point, it does not appear that the patient is on any medications which may be causing it. 3. HIV infection with leukopenia. 4. Anorexia. The patient did appear to eat some breakfast this morning. She still appears to have general cachexia. 4. 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 MRI of the brain showed no acute findings. 5. Deep venous thrombosis and peptic ulcer disease prophylaxis. MTDD
--- NOTE | 2018-08-16 16:48 | CON ---
DATE OF CONSULTATION: 08/16/2018 REASON FOR CONSULTATION: Altered mental status, HIV infection. HISTORY OF PRESENT ILLNESS: A 57-year-old patient, transgender, HIV seropositive for many years who has had recurrent episodes of nausea, vomiting in the past, some cognitive function changes. Apparently, he had an EGD in [place] and in 04/2018, his viral load was 532,000 and the CD4 cell count was 9. The assessment then was cachexia with recurrent nausea and vomiting, intermittent diarrhea, weakness with muscle wasting. The patient had a opportunistic assays submitted with a Fungitell assay which was within normal limits. The CMV viral load was undetectable. Cryptococcus antigen then was negative. The decision was made to transition patient to Biktarvy, Fuzeon on and Bactrim prophylaxis as well as azithromycin. I saw him again in 07/18/2018 and the patient had been taken Biktarvy regularly without problems. His repeat viral load had displayed a marked reduction to 40 compared with the previous one and our decision was then to continue treatment with Biktarvy. CD4 had gone up to 14. I was contacted by family members a few days ago because he had displayed some change in mental status was not having proper oral intake. He has been admitted now and initial findings, the patient had vital signs with a blood pressure 98/78, pulse 103, respirations 20, temperature 97.8 with O2 sat 99% room air. He did not appear in distress, although he had quite a bit of temporal wasting and wasting syndrome in general. No other findings in the physical examination were noticeable. Initial laboratory findings include a white cell count 3.6, hemoglobin 10.5, MCV 93, platelets 226 with neutrophil percentage 54, sodium was 124, creatinine 1.09. The initial calcium was 14.2 with an AST of 18 and ALT of 9, alkaline phosphatase 81, albumin 2.9. Urine osmolality was 311. Reports include a brain CT scan which did not show any remarkable findings. He did have opacification of left sphenoid sinus, which is unchanged from prior visit. Cortical volume loss was seen. Chest x-ray did not show any evidence of infiltrates. A brain MRI was completed and it showed no acute intracranial pathology. Currently, Mr. Martinez is awake. He recognized me and knows he is in the hospital, follows commands, pleasant. He denies any headaches, no visual symptoms, sore throat, odynophagia, or dysphagia. He had some choking episodes in the correction, but not here in the hospital. No chest pain, no cough, no abdominal pain, voiding without difficulty. No diarrhea, no bleeding. He is able to move all extremities. PAST MEDICAL HISTORY: Longstanding HIV infection with advanced immunosuppression, chronic hepatitis C with unknown treatment, wasting syndrome , he is a transgender sex change in 1989 with breast implants. ALLERGIES: SULFA DRUGS with rash. MEDICATION LIST: On admission, ferrous sulfate, folic acid, Centrum, other multivitamins Biktarvy, Remeron, bisacodyl, Vistaril, Levsin, lactulose, loperamide, morphine, Compazine, promethazine. PHYSICAL EXAMINATION: VITAL SIGNS: T-max 98.3, blood pressure 102/71, pulse 73, respirations 18, O2 sat 97%. SKIN: No areas of skin breakdown. The patient has a peripheral IV access and he has external condom catheter. No lymphadenopathy. Cachexia is noted. He does not appear in distress. HEENT: Ocular movements conjugate. Oral cavity moist, with no lesions. Numerous missing teeth. NECK: Supple, no jugular vein distention or thyromegaly. LUNGS: With symmetric breath sounds. HEART: S1, S2, regular rate without crackles or wheezing. ABDOMEN: Flat, soft, no organomegaly, no bladder distention. GENITOURINARY: No genital abnormalities. EXTREMITIES: No edema. Pulses 1+ in dorsalis pedis. Cap refill is normal. NEUROLOGIC: Plantar responses are indifferent. He is awake, oriented times self and place and knew the year as well. LABORATORY DATA: The labs have been reviewed above. The followup white cell count 2.1, hemoglobin 8.7, MCV 93, platelets 182,000, 49% neutrophils, 9% bands. Sodium 126, creatinine 0.88 and calcium is down to 313.2 from admission. We have pending phosphorus and parathyroid hormone. ASSESSMENT: 1. Advanced human immunodeficiency virus associated immunosuppression. 2. Wasting syndrome. 3. Hypercalcemia with altered mental status. 4. Marked improvement in viremia control over the past few months on Biktarvy. DISCUSSION: The most likely reason for the altered mental status identified by family members is the hypercalcemia which is severe. The causes of hypercalcemia in HIV patients other than the usual issues including vitamin D toxicity, hyperparathyroidism include opportunistic process such as infections associated with granulomatous response such as tuberculosis as well as immune reconstitution syndrome and lymphomas. Other malignancies with paraneoplastic production of hormones that affect calcium metabolism are possible as well. At this time, we will order a CT of chest and abdomen and pelvis with contrast. Consider a bone scan as well. We will wait for the parathyroid hormone levels and phosphorus. We will submit vitamin D levels as well. He needs to have prompted reduction in the calcium levels. If his hypercalcemia is refractory to saline diuresis, calcitonin may be attempted followed by administration of pamidronate. In his case, because of the possibility of immune reconstitution syndrome, glucocorticoids probably should be attempted as well and we will go ahead and start him on some Medrol intravenously, continue Biktarvy and pneumocystis prophylaxis. MTDD
--- NOTE | 2018-08-16 18:46 | CT ---
CT CHEST WITH IV CONTRAST CT ABDOMEN AND PELVIS WITH IV CONTRAST: Date: 08-16-18 History: HIV, cataria, hypercalcemia. Comparison: None available. FINDINGS: CT THORAX: In the right upper lobe there is mild peribronchial thickening with filling defects seen within more peripheral right upper lobe bronchi which may be related to mucous plugging. There is mild bronchiect asis in the right upper lobe. There is linear and patchy density seen at the right lung base, probably attributable to atelectasis. There is mild linear atelectasis versus scarring at the left lung base. Left lung is otherwise clear . There is no evidence of lymphadenopathy. Contrast is seen in the esophagus which may be related to gastroesophageal reflux. Vascular calcifications are seen in the coronary arteries as well as thoracic aorta. There is no evidence of lymphadenopathy. Bilateral breasts prostheses are present. CT ABDOMEN AND PELVIS: There is a low density focus seen within the lateral aspect medial segment of the left hepatic lobe. This may represent a small focal area of fatty infiltration versus perfusion defect. There is streak artifact seen through the abdomen due to the arms down by the side which does limit evaluation. The l iver is otherwise normal in appearance. The spleen, pancreas, bilateral adrenal glands, kidneys, and incompletely distended urinary bladder d emonstrate a normal CT appearance. However, there is increased density seen layering in the right asp ect of the urinary bladder. This could potentially be related to contrast, but the kidneys are not ob tained in the typical portal venous phase of imaging and no definite contrast is seen within the norma l collecting system. Calcifications layering dependently within the gallbladder lumen cannot be entir chery excluded. Punctate calcification is seen on the left. There is no hydronephrosis and no calculus is seen along the course of either ureter. Vascular calcifications are seen in the abdominal aorta and involving the iliac arteries. There is a moderate amount of retained fecal material seen within the rectum consistent with mild fec al impaction and constipation. There is mild perirectal inflammatory changes present. No bowel wall t hickening is seen in this region. Loops of small bowel are normal in caliber. There are an increased number of mesenteric lymph nodes s een. The largest measures approximately 1.2 cm in short axis dimension. There is also an increased nu mber of aortocaval lymph nodes with the largest left paraaortic lymph node seen measuring 1.6 cm in s hort axis dimension. No enlarged lymph nodes are seen in the pelvis or either inguinal region. Degenerative changes are seen in the spine. Focus of subcutaneous gas is seen in the left anterior abdominal wall likely due to recent injection site. IMPRESSION: 1. Mild bronchiectasis right upper lobe with areas of mild peribronchial thickening. There are fillin g defects within the right upper lobe bronchi as well, predominately peripherally which may be relate d to mucous plugging. Mild peribronchial thickening may be related to infectious or inflammatory proc ess. There is no consolidation. 2. Nonspecific abdominal lymphadenopathy. 3. Contrast in the distal esophagus which may be related to esophageal reflux. 4. Increased density material within the dependent portion of the right aspect of the urinary bladder . This may potentially be related to contrast given that this is a post contrasted study. No contrast is seen in either ureter or collecting system, and calculi in the urinary bladder cannot be excluded . 5. Moderate amount of retained fecal material in the rectum with distention of the rectum and perirec alondra inflammatory changes. There is no significant bowel wall present, but proctitis is a possibility with associated fecal impaction. POS: [facility]
[2018-08-16] MEDS: Mirtazapine 30 MG TAB PO SCH (21:04)
[2018-08-17 06:27] LABS: Hemoglobin 8.9 g/dL (12.0-16.0); Mean Corpuscular HGB CONC 32.9 g/dL (32.0-36.0); Mean Corpuscular Hemoglobin 30.7 pg (27.0-31.0); Mean Corpuscular Volume 93.4 fL (78.0-98.0); Mean Platelet Volume 6.7 fL (7.4-10.4); Platelet Count 185 thou/uL (130-400); White Blood Cell (WBC) Count 1.9 thou/uL (4.8-10.8)
[2018-08-17] MEDS ORDERED: Magnesium Sulfate 3 GM in Sodium Chloride 0.9% 100 ML IVPB SCH (06:30)
[2018-08-17] MEDS ORDERED: Sodium Chloride 0.9% 1,000 ML IV SCH (06:30)
[2018-08-17] MEDS ORDERED: Polyethylene Glycol 3350 17 GM Packet PO SCH (06:30)
[2018-08-17 06:46] LABS: ALT (SGPT) 7 U/L (8-55); AST (SGOT) 19 U/L (5-34); Albumin 2.5 g/dL (3.5-5.0); Alkaline Phosphatase 73 U/L (40-150); Anion Gap 6 mmol/L (10-20); BUN (Urea Nitrogen) 15 mg/dL (9.8-20.1); Bilirubin, Total 0.3 mg/dL (0.2-1.2); Calc. Creatinine Clearance 45 mL/min (70-130); Carbon Dioxide 27 mmol/L (22-29); Chloride 100 mmol/L (98-107); Estimated GFR-MDRD 64; Globulin 3.5 g/dL (2.4-3.5); Glucose 105 mg/dL (70-105); Potassium 4.3 mmol/L (3.5-5.1); Sodium 129 mmol/L (136-145)
[2018-08-17 06:56] LABS: Calcium 13.2 mg/dL (7.8-10.44)
[2018-08-17 07:23] LABS: Band 10 % (5-11); Lymphocytes 23 % (21-51); MDiff Complete? YES; Metamyelocyte 1 % (0-0); Monocytes 7 % (0-10); Neutrophil 59 % (42-75); PLT Morphology Comment Appears Adequate; Toxic Granulation SLIGHT
[2018-08-17] MEDS ORDERED: Zoledronic Acid 4 MG in Sodium Chloride 0.9% 100 ML IVPB SCH (08:00)
[2018-08-17] MEDS: Enoxaparin Sodium 40 MG/0.4 ML SYRINGE SC SCH (08:48)
[2018-08-17] MEDS: Calcitonin,Salmon,Synthetic 200 Units 3.7 ML PUMP L NARE SCH (08:48)
[2018-08-17] MEDS: Multivitamin W/ Minerals 1 TAB PO SCH (08:49)
[2018-08-17] MEDS: Cyanocobalamin (Vitamin B-12) 1,000 MCG TAB PO SCH (08:49)
[2018-08-17] MEDS: Famotidine 20 MG TAB PO SCH ×2 (08:49→20:20)
[2018-08-17] MEDS: Ferrous Sulfate 325 MG TAB PO SCH (08:49)
[2018-08-17] MEDS: Folic Acid 1 MG TAB PO SCH (08:49)
[2018-08-17] MEDS ORDERED: Furosemide 20 MG/2 ML VIAL SLOW IVP SCH (10:30)
--- NOTE | 2018-08-17 14:56 | PQF ---
CLINICAL DOCUMENTATION IMPROVEMENT CLARIFICATION FORM: ICD-10 Updated PLEASE DO AN ADDENDUM TO THE PROGRESS NOTE WITH ANY DOCUMENTATION UPDATES OR ADDITIONS AND CARRY THROUGH TO DC SUMMARY. THANK YOU. Date: 08/17/18 ATTN: Dr. Aguirre Please exercise your independent, professional judgment in responding to the clarification form. 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 Moderate Malnutrition (in chronic illness) Energy Intake: <75% of estimated energy requirement for >1 month Weight Loss: 5%/1 month; 7.5%/3 months; 10%/6 months; 20%/1 year Other: mild body fat loss; mild muscle mass loss; mild fluid accumulation Severe Malnutrition (in chronic illness) Energy Intake: <75% of estimated energy requirement for >1 month Weight Loss: >5%/1 month; >7.5%/3 months; >10%/6 months; >20%/1 year Other: severe body fat loss; severe muscle mass loss; severe fluid accumulation; measurably reduced quill picking machine operator strength Thank you, Regine (This form is maintained as a part of the permanent medical record) 2014 [employer]. All Rights Reserved Regine Ochoa RN, BSN [email or web address] Office: [phone] [facility] CENTERNoah
[2018-08-17 19:43] LABS: Anion Gap 11 mmol/L (10-20); BUN (Urea Nitrogen) 15 mg/dL (9.8-20.1); Calc. Creatinine Clearance 49 mL/min (70-130); Carbon Dioxide 24 mmol/L (22-29); Chloride 99 mmol/L (98-107); Estimated GFR-MDRD 70; Glucose 118 mg/dL (70-105); Potassium 3.5 mmol/L (3.5-5.1); Sodium 130 mmol/L (136-145)
[2018-08-17 19:45] LABS: Calcium 12.3 mg/dL (7.8-10.44)
--- NOTE | 2018-08-17 20:10 | PRG ---
DATE OF SERVICE: 08/17/2018 SUBJECTIVE: The patient feels well, has no complaint. Has had a large bowel movement. OBJECTIVE: VITAL SIGNS: Temperature 97.8, pulse 64, respirations 16, O2 sat 99% on room air, BP 118/71. GENERAL: A cachectic male who appears much older than stated age, awake, in no distress, not oriented. She does know where she is but does not know the month and is confused. No other issues but is otherwise able to have a generally normal conversation. HEENT: No OP lesions. NECK: Supple and symmetric. HEART: Regular rate and rhythm without murmurs. LUNGS: Clear bilaterally. ABDOMEN: Soft, nontender, nondistended with positive bowel sounds. EXTREMITIES: Warm and dry without edema with significant muscle wasting. LABORATORY DATA: White count is 1.9, hemoglobin 8.9, platelets 185, 59% neutrophils, 10% bands. Sodium 129, potassium 4.3, chloride 100, CO2 of 27, BUN of 15, creatinine 0.91, calcium is 13.2, magnesium 1.4. IMPRESSION AND PLAN: 1. Severe hypercalcemia. Workup thus far has failed to reveal a specific source for that. She had a CT chest, abdomen and pelvis which did not show a specific etiology for her hypercalcemia. She has had normal cortisol, vitamin D and PTH was a bit low. Her magnesium is low, given a couple of grams of magnesium today, also being more aggressive. We will hydrate and diurese. She has had calcitonin added as well as pamidronate concerning for the possibility of some type of lymphoma present that is as of yet undiagnosed. 2. HIV with wasting syndrome and leukopenia and anemia. Dr. Alejandro brunner has put the patient back on home medication, Biktarvy. 3. Constipation. The patient had significant stool in the rectal vault with some proctitis. She has had a significant bowel movement with treatment. 4. Hyponatremia, slightly improved, stable. 5. Altered mental status. The patient appears to have some chronic dementia related issues, but certainly the hyponatremia and hypercalcemia may be factorial, continuing to address these abnormalities aggressively. We will continue to monitor. Appears to be metabolic encephalopathy. 6. Profound debility, likely secondary to wasting. The patient is essentially bedbound at this time. [facility]
[2018-08-17] MEDS: Mirtazapine 30 MG TAB PO SCH (20:20)
[2018-08-17] MEDS: Sodium Chloride 0.9% 1,000 ML IV SCH (20:35)
--- NOTE | 2018-08-17 22:48 | PRG ---
DATE OF SERVICE: 08/17/2018 SUBJECTIVE: A 57-year-old female being seen for hyponatremia. The patient denies any nausea, vomiti ng or chest pain. PHYSICAL EXAMINATION: GENERAL: Patient is awake, alert. VITAL SIGNS: Afebrile, pulse 56, breathing AT 16, blood pressure 110/73. GENERAL APPEARANCE AND MENTAL STATUS: Fair. HEAD/NECK: Normocephalic. Atraumatic. EYES: EOMI. No deformity. EARS: Clear. No ulcers. NOSE: Intact. No lesions. MOUTH: Clear. No discharge. THROAT: Clear. No exudate. LUNGS: Clear. No crackles. CARDIAC: S1, S2. No rub. ABDOMEN: Benign. BS+. GENITALIA/RECTUM: Olmedo absent. BACK/EXTREMITIES: Edema 0+ Ulcer- NEUROLOGICAL: Alert and motor intact. SKIN: Rash- Bruise- LYMPHATICS: Edema- Ulcer- LABORATORY: Hemoglobin 8.5, sodium 129, calcium 13.2, magnesium is 1.4. ASSESSMENT AND RECOMMENDATIONS: 1. Hyponatremia, stable. Continue fluid restriction. 2. Hypercalcemia, we will recommend starting the patient on zoledronic acid. 3. Hypomagnesemia. Recommend magnesium replacement. 4. Human immunodeficiency virus and other malignancy. Workup in progress.
[2018-08-18] MEDS: Sodium Chloride 0.9% 1,000 ML IV SCH ×2 (08:20→20:21)
[2018-08-18] MEDS: Ferrous Sulfate 325 MG TAB PO SCH (09:49)
[2018-08-18] MEDS: Folic Acid 1 MG TAB PO SCH (09:49)
[2018-08-18] MEDS: Enoxaparin Sodium 40 MG/0.4 ML SYRINGE SC SCH (09:49)
[2018-08-18] MEDS: Cyanocobalamin (Vitamin B-12) 1,000 MCG TAB PO SCH (09:49)
[2018-08-18] MEDS: Famotidine 20 MG TAB PO SCH ×2 (09:49→20:21)
[2018-08-18] MEDS: Multivitamin W/ Minerals 1 TAB PO SCH (09:49)
[2018-08-18] MEDS: Calcitonin,Salmon,Synthetic 200 Units 3.7 ML PUMP L NARE SCH (09:50)
[2018-08-18] MEDS ORDERED: predniSONE 20 MG TAB PO SCH (11:00)
[2018-08-18 11:20] LABS: Anion Gap 9 mmol/L (10-20); BUN (Urea Nitrogen) 15 mg/dL (9.8-20.1); Calc. Creatinine Clearance 53 mL/min (70-130); Calcium 10.6 mg/dL (7.8-10.44); Carbon Dioxide 23 mmol/L (22-29); Chloride 105 mmol/L (98-107); Estimated GFR-MDRD 73; Glucose 126 mg/dL (70-105); Potassium 3.6 mmol/L (3.5-5.1); Sodium 133 mmol/L (136-145)
[2018-08-18 12:15] LABS: %CD4 (Helper/Inducer) 6.2 % (30.8-58.5); Absolute CD4 31 /uL (359-1519); Lymphocytes/Gated Cell Count 0.5 x10E3/uL (0.7-3.1); Total Lymphocyte 20 % (Not Estab.); WBC Total Count 2.8 x10E3/uL (3.4-10.8)
--- NOTE | 2018-08-18 13:46 | PRG ---
DATE OF SERVICE: 08/18/2018 SUBJECTIVE: This is a 57-year-old female being seen for hyponatremia. The patient's sodium has impr jim. Patient denies any nausea, vomiting or chest pain. OBJECTIVE: GENERAL: Patient is awake, alert. VITAL SIGNS: Afebrile, pulse 59, breathing 16, blood pressure 93/57. GENERAL APPEARANCE AND MENTAL STATUS: Fair. HEAD/NECK: Normocephalic. Atraumatic. EYES: EOMI. No deformity. EARS: Clear. No ulcers. NOSE: Intact. No lesions. MOUTH: Clear. No discharge. THROAT: Clear. No exudate. LUNGS: Clear. No crackles. CARDIAC: S1, S2. No rub. ABDOMEN: Benign. BS+. GENITALIA/RECTUM: Olmedo absent. BACK/EXTREMITIES: Edema 0+ Ulcer- NEUROLOGICAL: Alert and motor intact. SKIN: Rash- Bruise- LYMPHATICS: Edema- Ulcer- LABORATORY: Sodium is 133, creatinine 0.8, calcium 10.6. ASSESSMENT AND RECOMMENDATIONS: 1. Hyponatremia, improved. 2. Syndrome of inappropriate antidiuretic hormone secretion, stable. 3. Hypercalcemia, improved. I will sign off on this patient. Please reconsult as needed.
[2018-08-18 16:16] LABS: Albumin-Ur 15.3 % (.); Alpha 2 - Ur 16.1 % (.); Beta-Ur 18.9 % (.); Gamma-Ur 42.7 % (.); M-Spike,% Not Observed % (Not Observed); Protein, Urine 12.4 mg/dL (Not Estab.)
--- NOTE | 2018-08-18 19:45 | NM ---
TOTAL BODY BONE SCAN 08/18/18 HISTORY: 57-year-old female with history of hypercalcemia of unknown etiology. Patient was injected with 33.0 millicuries technetium 99m MDP intravenously. Whole body images demons trate some bilateral renal and bladder activity. There was some urine contamination overlying the per ineum. No evidence of abnormal or altered osteogenesis. IMPRESSION: Unremarkable bone scan. POS: [facility]
[2018-08-18] MEDS: BIKTARVY PO SCH (20:20)
[2018-08-18] MEDS: Mirtazapine 30 MG TAB PO SCH (20:21)
--- NOTE | 2018-08-18 20:28 | PDOC.PN ---
- Subjective Encounter Start Date: 08/18/18 Encounter Start Time: 10:35 Feels well today. No complaints. Wants to consider some therapy. - Objective Resuscitation Status: Resuscitation Status FULL:Full Resuscitation Vital Signs & Weight: Vital Signs (12 hours) Temp Pulse Pulse Pulse Resp BP BP 08/18/18 20:05 98.2 F 62 16 08/18/18 16:20 08/18/18 16:00 97.4 F L 60 16 08/18/18 13:44 84 75 103/61 95/61 08/18/18 12:00 97.8 F 59 L 16 BP Pulse Ox 08/18/18 20:05 83/53 L 99 08/18/18 16:20 100 08/18/18 16:00 90/53 L 100 08/18/18 13:44 08/18/18 12:00 93/57 L Weight Admit Weight 97 lb 8 oz Weight 96 lb 1.6 oz I&O: 08/17/18 08/18/18 08/19/18 06:59 06:59 06:59 Intake Total 2820 1020 Output Total 350 1400 475 Balance -350 1420 545 Result Diagrams: 08/17/18 04:46 08/18/18 10:48 Phys Exam - Physical Examination Constitutional: NAD Conversant. HEENT: oral pharynx no lesions Neck: no nodes, no JVD, supple Respiratory: no wheezing, no rales, no rhonchi Cardiovascular: RRR, no significant murmur Gastrointestinal: soft, non-tender, no distention Musculoskeletal: no edema Psychiatric: normal affect Deviation from normal: Normal conversation, but no fully oriented. Dx/Plan (1) Hyponatremia Code(s): E87.1 - HYPO-OSMOLALITY AND HYPONATREMIA Status: Acute Comment: Chronic, slightly improved. (2) HIV (human immunodeficiency virus infection) Status: Chronic Comment: Dr. Alejandro brunner. (3) Pancytopenia Code(s): D61.818 - OTHER PANCYTOPENIA Status: Chronic Comment: Secondary to HIV. (4) Protein-calorie malnutrition, moderate Code(s): E44.0 - MODERATE PROTEIN-CALORIE MALNUTRITION Status: Chronic Comment: HIV wasting. Continue to supplement diet. (5) Hypercalcemia Code(s): E83.52 - HYPERCALCEMIA Status: Resolved Comment: IVF with diuresis , steroids, zolendronate, calcitonin. No clear source identified yet. Some studies still pending, but no evidence of cancer at this time. Bone scan was negative, metabolic and hormonal studies negative so far. May need endoscopy. As workup remains negative, increasingly likely that the hypercalcemia is related to immobility which can present like this in a patient who has become profoundly immobile. (6) Hypomagnesemia Code(s): E83.42 - HYPOMAGNESEMIA Status: Resolved Comment: Supplemented. (7) Metabolic encephalopathy Code(s): G93.41 - METABOLIC ENCEPHALOPATHY Status: Acute Comment: Possible etiologies include hypercalcemia, hyponatremia or HIV related. May be slightly improved. (8) Physical debility Code(s): R53.81 - OTHER MALAISE Status: Acute Comment: Has been bed bound for months. No real reason other that general debility. She did get up with PT today. Walked a few steps. Seems to be more motivated to rehab now. Cont PT. - Plan * Above. * With improved calcium, consider continuation of calcitonin and outpatient workup. Can get rehab at current facility. * The hypercalcemia may well be related to the profound immobility. In this case, physical therapy to increase mobility will paramount to preventing this in the future.
[2018-08-19 06:52] LABS: ALT (SGPT) 8 U/L (8-55); AST (SGOT) 12 U/L (5-34); Alkaline Phosphatase 50 U/L (40-150); Anion Gap 6 mmol/L (10-20); BUN (Urea Nitrogen) 14 mg/dL (9.8-20.1); Bilirubin, Total Less than 0.2 mg/dL (0.2-1.2); Calc. Creatinine Clearance 53 mL/min (70-130); Calcium 9.2 mg/dL (7.8-10.44); Carbon Dioxide 24 mmol/L (22-29); Chloride 108 mmol/L (98-107); Estimated GFR-MDRD 74; Globulin 2.6 g/dL (2.4-3.5); Glucose 107 mg/dL (70-105); Magnesium 1.6 mg/dL (1.6-2.6); Potassium 3.5 mmol/L (3.5-5.1); Protein, Total 4.6 g/dL (6.0-8.3); Sodium 134 mmol/L (136-145)
[2018-08-19 08:34] LABS: Band 20 % (5-11); Hemoglobin 7.5 g/dL (12.0-16.0); Lymphocytes 20 % (21-51); MDiff Complete? YES; Mean Corpuscular HGB CONC 32.6 g/dL (32.0-36.0); Mean Corpuscular Hemoglobin 30.9 pg (27.0-31.0); Mean Corpuscular Volume 94.6 fL (78.0-98.0); Mean Platelet Volume 6.5 fL (7.4-10.4); Metamyelocyte 1 % (0-0); Monocytes 10 % (0-10); Neutrophil 49 % (42-75); Platelet Count 179 thou/uL (130-400); RBC Distribution Width 13.3 % (11.5-14.5); Red Blood Cell (RBC) Count 2.42 mill/uL (4.20-5.40)
[2018-08-19] MEDS: BIKTARVY PO SCH ×2 (09:47)
[2018-08-19] MEDS: Enoxaparin Sodium 40 MG/0.4 ML SYRINGE SC SCH (09:48)
[2018-08-19] MEDS: Ferrous Sulfate 325 MG TAB PO SCH (09:48)
[2018-08-19] MEDS: Famotidine 20 MG TAB PO SCH ×2 (09:48→21:49)
[2018-08-19] MEDS: Multivitamin W/ Minerals 1 TAB PO SCH (09:48)
[2018-08-19] MEDS: Cyanocobalamin (Vitamin B-12) 1,000 MCG TAB PO SCH (09:48)
[2018-08-19] MEDS: Folic Acid 1 MG TAB PO SCH (09:48)
--- NOTE | 2018-08-19 12:16 | EKG ---
Test Reason : Blood Pressure : / mmHG Vent. Rate : 098 BPM Atrial Rate : 098 BPM P-R Int : 158 ms QRS Dur : 110 ms QT Int : 560 ms P-R-T Axes : 086 092 074 degrees QTc Int : 714 ms Normal sinus rhythm Rightward axis Nonspecific T wave abnormality Prolonged QT Abnormal ECG Confirmed by ISABELA LITTLE ([id number]), market editor ARACELIS MOON ([id number]) on 08/19/2018 12:16:34 PM Referred By: ANABEL Confirmed By:ISABELA LITTLE
--- NOTE | 2018-08-19 17:38 | PDOC.PN ---
- Subjective Encounter Start Date: 08/19/18 Encounter Start Time: 12:15 Feels very well. Eating fairly well. No complaints. Very eager to do therapy and wants to make sure they will come by today. - Objective Resuscitation Status: Resuscitation Status FULL:Full Resuscitation Vital Signs & Weight: Vital Signs (12 hours) Temp Pulse Pulse Resp BP BP BP 08/19/18 16:59 97.9 F 74 16 94/54 L 08/19/18 14:17 70 88/52 L 96/55 L 08/19/18 11:29 99 F 67 16 98/63 08/19/18 08:00 97.7 F 71 20 113/73 Pulse Ox 08/19/18 16:59 100 08/19/18 14:17 08/19/18 11:29 100 08/19/18 08:00 100 Weight Admit Weight 97 lb 8 oz Weight 94 lb 9.6 oz I&O: 08/18/18 08/19/18 08/20/18 06:59 06:59 06:59 Intake Total 2820 1820 Output Total 1400 1375 Balance 1420 445 Result Diagrams: 08/19/18 06:03 08/19/18 06:03 Phys Exam - Physical Examination Constitutional: NAD awake and alert. Respiratory: no wheezing, no rales, no rhonchi, clear to auscultation bilateral Cardiovascular: RRR, no significant murmur Gastrointestinal: soft, non-tender, no distention, positive bowel sounds Musculoskeletal: no edema Neurological: non-focal Psychiatric: normal affect Deviation from normal: Oriented except to month (Sept rather than Oct). Dx/Plan (1) Hyponatremia Code(s): E87.1 - HYPO-OSMOLALITY AND HYPONATREMIA Status: Acute Comment: Chronic, much improved. (2) HIV (human immunodeficiency virus infection) Status: Chronic Comment: Dr. Alejandro brunner. On anti-retroviral therapy. (3) Pancytopenia Code(s): D61.818 - OTHER PANCYTOPENIA Status: Chronic Comment: Secondary to HIV. (4) Protein-calorie malnutrition, moderate Code(s): E44.0 - MODERATE PROTEIN-CALORIE MALNUTRITION Status: Chronic Comment: HIV wasting. Continue to supplement diet. Seems to be eating pretty well here. (5) Hypercalcemia Code(s): E83.52 - HYPERCALCEMIA Status: Resolved Comment: IVF with diuresis , steroids, zolendronate, calcitonin. Some studies still pending, but no evidence of cancer at this time. Bone scan was negative, metabolic and hormonal studies negative so far. As workup remains negative, increasingly likely that the hypercalcemia is related to immobility which can present like this in a patient who has become profoundly immobile. (6) Hypomagnesemia Code(s): E83.42 - HYPOMAGNESEMIA Status: Resolved Comment: Supplemented. (7) Metabolic encephalopathy Code(s): G93.41 - METABOLIC ENCEPHALOPATHY Status: Acute Comment: Seems to be much improved. Possible etiologies include hypercalcemia, hyponatremia or HIV related. (8) Physical debility Code(s): R53.81 - OTHER MALAISE Status: Acute Comment: Has been bed bound for months. No real reason other that general debility. She did get up with PT today. Walked a few steps. Seems to be more motivated to rehab now. Cont PT. - Plan * Wants to consider rehab at [facility]. Discussed with CM.
--- NOTE | 2018-08-19 18:11 | PRG ---
DATE OF SERVICE: 08/19/2018 SUBJECTIVE: Feeling much better. He is eating better reportedly. According to his own account, he stood up today, but was not able to walk, stood up for above 10 minutes reportedly, has hard to belie ve. He denies any headaches, no visual symptoms. No dyspnea or sore throat, apparently passed his s peech therapy evaluation without problems. No abdominal pain. PHYSICAL EXAMINATION: VITAL SIGNS: T-max 99, blood pressure 94/54, pulse 74, respirations 16, O2 sat 100. No lymphadenopa thy. Awake, alert, oriented, pleasant. LUNGS: Clear. HEART: S1, S2, regular rate. ABDOMEN: Soft, not distended. LABORATORY DATA: White cell count 2.0, hemoglobin 7.5, platelets 179, 49% neutrophils, 20% bands, 20 % lymphocytes. C4 was 31, which is the highest he has had in the past 12 months. Creatinine 0.8. H is calcium is down to normal at 9.2 at this time. Albumin 2.0, globulin 2.6. The bone scan did not show any areas of uptake, protein electrophoresis with no abnormalities or no monoclonal protein. ASSESSMENT AND DISCUSSION: 1. Longstanding human immunodeficiency virus infection with erratic adherence to antiretroviral ther apy and advanced immunosuppression. 2. Marked improvement in the recent viremia control after Biktarvy was started. 3. Wasting syndrome. 4. Recent change in mental status was due to decreased oral intake with marked hypercalcemia without obvious cause at this point in time. No evidence of malignancy. No evidence of hyperparathyroidism . It is possible that this is a reflection of immune reconstitution syndrome. He does have some of those lung changes in the upper lobes, but I think tuberculosis is not likely. Dr. Aguirre has consi dered the mobility as well as a cause of hypercalcemia, although it is kind of bit high level for gerardo t anyway, so marked improvement and now he is on low dose steroids to be tapered. Add Mepron for pne umocystis prophylaxis. No other prophylaxis indicated. Discharge planning to rehabilitation.
[2018-08-19] MEDS: Mirtazapine 30 MG TAB PO SCH (21:49)
[2018-08-20 05:51] LABS: ALT (SGPT) 11 U/L (8-55); AST (SGOT) 17 U/L (5-34); Albumin 2.1 g/dL (3.5-5.0); Alkaline Phosphatase 49 U/L (40-150); Anion Gap 7 mmol/L (10-20); BUN (Urea Nitrogen) 15 mg/dL (9.8-20.1); Bilirubin, Total 0.3 mg/dL (0.2-1.2); Calc. Creatinine Clearance 47 mL/min (70-130); Calcium 8.5 mg/dL (7.8-10.44); Carbon Dioxide 24 mmol/L (22-29); Chloride 102 mmol/L (98-107); Estimated GFR-MDRD 64; Globulin 2.4 g/dL (2.4-3.5); Glucose 86 mg/dL (70-105); Potassium 3.1 mmol/L (3.5-5.1); Protein, Total 4.5 g/dL (6.0-8.3); Sodium 130 mmol/L (136-145)
[2018-08-20 06:08] LABS: Band 6 % (5-11); Eosinophils 3 % (0-10); Hemoglobin 8.7 g/dL (12.0-16.0); Lymphocytes 16 % (21-51); MDiff Complete? YES; Mean Corpuscular HGB CONC 33.3 g/dL (32.0-36.0); Mean Corpuscular Hemoglobin 31.3 pg (27.0-31.0); Mean Corpuscular Volume 94.2 fL (78.0-98.0); Mean Platelet Volume 5.8 fL (7.4-10.4); Monocytes 10 % (0-10); Neutrophil 61 % (42-75); Platelet Count 173 thou/uL (130-400); RBC Distribution Width 13.2 % (11.5-14.5); Reactive Lymphocytes 4 % (0-10); Red Blood Cell (RBC) Count 2.78 mill/uL (4.20-5.40); White Blood Cell (WBC) Count 2.1 thou/uL (4.8-10.8)
[2018-08-20] MEDS: Folic Acid 1 MG TAB PO SCH (09:30)
[2018-08-20] MEDS: Cyanocobalamin (Vitamin B-12) 1,000 MCG TAB PO SCH (09:30)
[2018-08-20] MEDS: Enoxaparin Sodium 40 MG/0.4 ML SYRINGE SC SCH (09:30)
[2018-08-20] MEDS: Famotidine 20 MG TAB PO SCH ×2 (09:30→22:08)
[2018-08-20] MEDS: Ferrous Sulfate 325 MG TAB PO SCH (09:30)
[2018-08-20] MEDS: BIKTARVY PO SCH (09:31)
[2018-08-20] MEDS: Multivitamin W/ Minerals 1 TAB PO SCH (09:31)
[2018-08-20] MEDS: Atovaquone 750 MG/5 ML UDCUP PO SCH ×2 (10:25→17:08)
--- NOTE | 2018-08-20 13:25 | PDOC.PN ---
- Subjective Encounter Start Date: 08/20/18 Encounter Start Time: 07:40 Pt seen for followup re: hyponatremia. c/o generalized weakness. - Objective Resuscitation Status: Resuscitation Status FULL:Full Resuscitation MAR Reviewed: Yes Vital Signs & Weight: Vital Signs (12 hours) Temp Pulse Resp BP Pulse Ox 08/20/18 11:46 99.4 F 87 16 104/65 98 08/20/18 07:41 99.6 F 94 16 104/63 98 08/20/18 04:00 100.6 F H 96 18 98/59 L 96 Weight Admit Weight 97 lb 8 oz Weight 101 lb 4.8 oz I&O: 08/19/18 08/20/18 08/21/18 06:59 06:59 06:59 Intake Total 1820 2440 Output Total 1375 850 Balance 445 1590 Result Diagrams: 08/20/18 05:08 08/20/18 05:08 EKG Reviewed by me: Yes (Tele: NSR) Phys Exam - Physical Examination wasting HEENT: moist MMs Neck: supple Respiratory: clear to auscultation bilateral Cardiovascular: RRR Gastrointestinal: soft Neurological: moves all 4 limbs Psychiatric: normal affect Dx/Plan (1) Hyponatremia Code(s): E87.1 - HYPO-OSMOLALITY AND HYPONATREMIA Status: Acute Comment: sodium dropped to 130 today, continue to monitor lytes (2) Hypokalemia Code(s): E87.6 - HYPOKALEMIA Status: Acute Comment: replace potassium (3) Physical debility Code(s): R53.81 - OTHER MALAISE Status: Acute Comment: continue PT, may need Rehab (4) HIV (human immunodeficiency virus infection) Status: Chronic Comment: On anti-retroviral therapy. (5) Protein-calorie malnutrition, moderate Code(s): E44.0 - MODERATE PROTEIN-CALORIE MALNUTRITION Status: Chronic Comment: HIV wasting. Continue to supplement diet. (6) Hypercalcemia Code(s): E83.52 - HYPERCALCEMIA Status: Resolved - Plan * . Review of Systems - Review of Systems Constitutional: weakness Respiratory: negative: Cough, Shortness of Breath, SOB with Excertion, Pleuritic Pain, Wheezing Cardiovascular: negative: chest pain, palpitations, orthopnea, paroxysmal nocturnal dyspnea, edema, light headedness - Medications/Allergies Allergies/Adverse Reactions: Allergies Allergy/AdvReac Type Severity Reaction Status Date / Time Sulfa (Sulfonamide Allergy Verified 04/19/18 06:36 Antibiotics) Medications: Current Medications Acetaminophen (Tylenol) 650 mg PO Q4H PRN PRN Reason: Headache/Fever/Mild Pain (1-3) Atovaquone (Mepron) 750 mg PO BID-[facility] Last Admin: 08/20/18 10:25 Dose: 750 mg Calcitonin Helix (Miacalcin) 1 sprays L NARE Q2DAYS [facility] Last Admin: 08/18/18 09:50 Dose: 1 spr Cyanocobalamin (Vitamin B-12) 1,000 mcg PO DAILY [facility] Last Admin: 08/20/18 09:30 Dose: 1,000 mcg Enoxaparin Sodium (Lovenox) 40 mg SC 0900 [facility] Last Admin: 08/20/18 09:30 Dose: 40 mg Famotidine (Pepcid) 20 mg PO BID [facility] Last Admin: 08/20/18 09:30 Dose: 20 mg Ferrous Sulfate (Feosol) 325 mg PO DAILY [facility] Last Admin: 08/20/18 09:30 Dose: 325 mg Folic Acid (Folvite) 1 mg PO DAILY [facility] Last Admin: 08/20/18 09:30 Dose: 1 mg Hydroxyzine Pamoate (Vistaril) 50 mg PO HSPRN PRN PRN Reason: SLEEP Hyoscyamine Sulfate (Levsin Sl) 0.125 mg SL Q4H PRN PRN Reason: Secretions Iron/Minerals/Multivitamins (Theragran M) 1 tab PO DAILY [facility] Last Admin: 08/20/18 09:31 Dose: 1 tab Lorazepam (Ativan) 0.5 mg PO Q4H PRN PRN Reason: Anxiety Mirtazapine (Remeron) 30 mg PO HS [facility] Last Admin: 08/19/18 21:49 Dose: 30 mg Biktarvy ( Bictegravir/Emtricitabine/Tenofovir) 50/200/25 0 each PO QAM [facility] Last Admin: 08/20/18 09:31 Dose: 1 each Potassium Chloride (K-Dur) 40 meq PO 1400,1800 [facility] Stop: 08/20/18 18:01 Sodium Chloride (Flush - Normal Saline) 10 ml IVF Q12HR [facility] Last Admin: 08/20/18 09:32 Dose: 10 ml Sodium Chloride (Flush - Normal Saline) 10 ml IVF PRN PRN PRN Reason: Saline Flush
[2018-08-20] MEDS: Potassium Chloride 20 MEQ TAB PO SCH ×2 (14:41→17:08)
[2018-08-20] MEDS: Mirtazapine 30 MG TAB PO SCH (22:08)
[2018-08-21] MEDS: Calcitonin,Salmon,Synthetic 200 Units 3.7 ML PUMP L NARE SCH (08:46)
[2018-08-21] MEDS: Atovaquone 750 MG/5 ML UDCUP PO SCH ×2 (08:48→16:10)
[2018-08-21] MEDS: Multivitamin W/ Minerals 1 TAB PO SCH (08:49)
[2018-08-21] MEDS: Cyanocobalamin (Vitamin B-12) 1,000 MCG TAB PO SCH (08:49)
[2018-08-21] MEDS: Ferrous Sulfate 325 MG TAB PO SCH (08:49)
[2018-08-21] MEDS: Folic Acid 1 MG TAB PO SCH (08:49)
[2018-08-21] MEDS: Famotidine 20 MG TAB PO SCH ×2 (08:49→22:45)
[2018-08-21] MEDS: Enoxaparin Sodium 40 MG/0.4 ML SYRINGE SC SCH (08:49)
[2018-08-21] MEDS: BIKTARVY PO SCH (08:50)
[2018-08-21 12:45] VITALS: BMI 13.6
--- NOTE | 2018-08-21 15:21 | PDOC.PN ---
- Subjective Encounter Start Date: 08/21/18 Encounter Start Time: 07:40 Pt seen for followup re: hyponatremia. denies chest pain, or shortness of breath. c/o generalized weakness. - Objective Resuscitation Status: Resuscitation Status FULL:Full Resuscitation MAR Reviewed: Yes Vital Signs & Weight: Vital Signs (12 hours) Temp Pulse Resp BP Pulse Ox 08/21/18 12:39 98.3 F 74 14 95/61 97 08/21/18 08:37 98.8 F 90 20 101/55 L 08/21/18 04:00 99.5 F 81 18 97/60 98 Weight Admit Weight 97 lb 8 oz Weight 101 lb I&O: 08/20/18 08/21/18 08/22/18 06:59 06:59 06:59 Intake Total 2440 2230 Output Total 850 650 Balance 1590 1580 Result Diagrams: 08/20/18 05:08 08/20/18 05:08 EKG Reviewed by me: Yes (Tele: NSR) Phys Exam - Physical Examination cachexia HEENT: moist MMs Neck: supple Respiratory: clear to auscultation bilateral Cardiovascular: RRR Gastrointestinal: soft Neurological: moves all 4 limbs Psychiatric: normal affect Dx/Plan (1) Hyponatremia Code(s): E87.1 - HYPO-OSMOLALITY AND HYPONATREMIA Status: Acute Comment: check AM labs (2) Hypokalemia Code(s): E87.6 - HYPOKALEMIA Status: Acute Comment: check potassium level in AM (3) Physical debility Code(s): R53.81 - OTHER MALAISE Status: Acute Comment: continue PT, may need inpatient rehab (4) HIV (human immunodeficiency virus infection) Status: Chronic Comment: continue anti-retroviral therapy. (5) Protein-calorie malnutrition, moderate Code(s): E44.0 - MODERATE PROTEIN-CALORIE MALNUTRITION Status: Chronic Comment: Continue to supplement diet. (6) Hypercalcemia Code(s): E83.52 - HYPERCALCEMIA Status: Resolved - Plan * . Review of Systems - Review of Systems Constitutional: weakness Cardiovascular: negative: chest pain, palpitations, orthopnea, paroxysmal nocturnal dyspnea, edema, light headedness Gastrointestinal: negative: Nausea, Vomiting, Abdominal Pain, Diarrhea, Constipation, Melena, Hematochezia - Medications/Allergies Allergies/Adverse Reactions: Allergies Allergy/AdvReac Type Severity Reaction Status Date / Time Sulfa (Sulfonamide Allergy Verified 04/19/18 06:36 Antibiotics) Medications: Current Medications Acetaminophen (Tylenol) 650 mg PO Q4H PRN PRN Reason: Headache/Fever/Mild Pain (1-3) Atovaquone (Mepron) 750 mg PO BID-[facility] Last Admin: 08/21/18 08:48 Dose: 750 mg Calcitonin [place] (Miacalcin) 1 sprays L NARE Q2DAYS [facility] Last Admin: 08/21/18 08:46 Dose: 1 spr Cyanocobalamin (Vitamin B-12) 1,000 mcg PO DAILY [facility] Last Admin: 08/21/18 08:49 Dose: 1,000 mcg Enoxaparin Sodium (Lovenox) 40 mg SC 0900 [facility] Last Admin: 08/21/18 08:49 Dose: 40 mg Famotidine (Pepcid) 20 mg PO BID [facility] Last Admin: 08/21/18 08:49 Dose: 20 mg Ferrous Sulfate (Feosol) 325 mg PO DAILY [facility] Last Admin: 08/21/18 08:49 Dose: 325 mg Folic Acid (Folvite) 1 mg PO DAILY [facility] Last Admin: 08/21/18 08:49 Dose: 1 mg Hydroxyzine Pamoate (Vistaril) 50 mg PO HSPRN PRN PRN Reason: SLEEP Hyoscyamine Sulfate (Levsin Sl) 0.125 mg SL Q4H PRN PRN Reason: Secretions Iron/Minerals/Multivitamins (Theragran M) 1 tab PO DAILY [facility] Last Admin: 08/21/18 08:49 Dose: 1 tab Lorazepam (Ativan) 0.5 mg PO Q4H PRN PRN Reason: Anxiety Last Admin: 08/20/18 22:07 Dose: 0.5 mg Mirtazapine (Remeron) 30 mg PO HS [facility] Last Admin: 08/20/18 22:08 Dose: 30 mg Biktarvy ( Bictegravir/Emtricitabine/Tenofovir) 50/200/25 0 each PO QAM [facility] Last Admin: 08/21/18 08:50 Dose: 1 each Sodium Chloride (Flush - Normal Saline) 10 ml IVF Q12HR [facility] Last Admin: 08/21/18 08:50 Dose: 10 ml Sodium Chloride (Flush - Normal Saline) 10 ml IVF PRN PRN PRN Reason: Saline Flush
--- NOTE | 2018-08-21 18:08 | PRG ---
DATE OF SERVICE: 08/21/2018 SUBJECTIVE: Does not have any complaints. No headaches, no shortness of breath. Eating well report edly. No abdominal pain, no diarrhea. OBJECTIVE: VITAL SIGNS: T-max 100.9, blood pressure 130/67, pulse 92, respirations 15, O2 sat 100. GENERAL: Awake, alert. LUNGS: Clear. HEART: S1, S2, regular rate. ABDOMEN: Soft and not distended. LABORATORY DATA: White cell count 2.1, hemoglobin 8.7, platelets 173, 61% neutrophils, 6% bands. ASSESSMENT AND DISCUSSION: 1. Human immunodeficiency virus infection with erratic adherence to antiretroviral therapy and advan erickson immunosuppression with recent marked improvement in viremia control after Biktarvy. 2. Wasting syndrome. 3. Mental status changes secondary to hypercalcemia without obvious cause after workup. The mobilit y has been discussed. Possibility of immune reconstitution syndrome and a granuloma production of vi tamin D is another possibility. Continue current regimen. Taper prednisone prior to discharge plann ing. Continue Biktarvy and Mepron for PCP prophylaxis.
[2018-08-21 19:10] LABS: A/G Ratio 0.7 (0.7-1.7); Albumin 2.4 g/dL (2.9-4.4); Alpha 1 0.4 g/dL (0.0-0.4); Alpha 2 0.9 g/dL (0.4-1.0); Beta 0.8 g/dL (0.7-1.3); Gamma 1.5 g/dL (0.4-1.8); Globulin, Total 3.6 g/dL (2.2-3.9); M-Spike 0.3 g/dL (Not Observed)
[2018-08-21] MEDS: Mirtazapine 30 MG TAB PO SCH (22:45)
[2018-08-22 07:10] LABS: Anion Gap 8 mmol/L (10-20); BUN (Urea Nitrogen) 15 mg/dL (9.8-20.1); Calc. Creatinine Clearance 61 mL/min (70-130); Calcium 8.1 mg/dL (7.8-10.44); Carbon Dioxide 22 mmol/L (22-29); Chloride 103 mmol/L (98-107); Estimated GFR-MDRD 81; Glucose 75 mg/dL (70-105); Potassium 3.9 mmol/L (3.5-5.1); Sodium 129 mmol/L (136-145)
[2018-08-22] MEDS: Atovaquone 750 MG/5 ML UDCUP PO SCH ×2 (08:07→16:00)
[2018-08-22] MEDS: Enoxaparin Sodium 40 MG/0.4 ML SYRINGE SC SCH (08:08)
[2018-08-22] MEDS: Ferrous Sulfate 325 MG TAB PO SCH (08:08)
[2018-08-22] MEDS: Cyanocobalamin (Vitamin B-12) 1,000 MCG TAB PO SCH (08:08)
[2018-08-22] MEDS: Multivitamin W/ Minerals 1 TAB PO SCH (08:08)
[2018-08-22] MEDS: Famotidine 20 MG TAB PO SCH (08:08)
[2018-08-22] MEDS: Folic Acid 1 MG TAB PO SCH (08:08)
[2018-08-22] MEDS: BIKTARVY PO SCH (08:12)
[2018-08-22 08:23] LABS: Hemoglobin 8.9 g/dL (12.0-16.0); Mean Corpuscular HGB CONC 32.4 g/dL (32.0-36.0); Mean Corpuscular Hemoglobin 30.9 pg (27.0-31.0); Mean Corpuscular Volume 95.4 fL (78.0-98.0); Mean Platelet Volume 6.2 fL (7.4-10.4); Platelet Count 145 thou/uL (130-400); RBC Distribution Width 13.6 % (11.5-14.5); Red Blood Cell (RBC) Count 2.87 mill/uL (4.20-5.40); White Blood Cell (WBC) Count 1.7 thou/uL (4.8-10.8)
[2018-08-22 08:28] LABS: Band 16 % (5-11); Dohle Bodies SLIGHT; Eosinophils 6 % (0-10); Lymphocytes 14 % (21-51); MDiff Complete? YES; Metamyelocyte 2 % (0-0); Monocytes 20 % (0-10); Neutrophil 40 % (42-75); Ovalocytes SLIGHT = 2-5 cells (100X) (0-1/hpf); PLT Morphology Comment Appears Adequate; Polychromasia SLIGHT = 2-3 cells (100X) (0-2/hpf); Vacuoles SLIGHT
[2018-08-22] MEDS ORDERED: Ondansetron PF 4 MG/2 ML Vial IVP PRN (09:33)
[2018-08-22] MEDS ORDERED: Ondansetron ODT 4 MG TAB PO PRN (11:36)
[2018-08-22 16:43] VITALS: BP 102/69; TEMP 99.5
--- NOTE | 2018-08-22 19:16 | DIS ---
DATE OF ADMISSION: 08/15/2018 DATE OF DISCHARGE: 08/22/2018 PRIMARY CARE PROVIDER: Carli Murray M.D. DISCHARGE DIAGNOSES: 1. Acute metabolic encephalopathy. 2. Hypercalcemia, most likely cause of acute metabolic encephalopathy. 3. Human immunodeficiency virus associated wasting syndrome. 4. Hyponatremia. 5. Hypercalcemia. 6. Physical deconditioning. CONSULTATIONS DURING THIS HOSPITALIZATION: Infectious Diseases, Dr. Allen and Nephrology, Dr. Santo. CONDITION OF PATIENT ON THE DAY OF DISCHARGE: Stable. I assessed Ms. Martinez on the day of disch arge. She denies any chest pain or shortness of breath. PHYSICAL EXAMINATION: VITAL SIGNS: Stable. HEART: S1 and S2 are heard, regular. LUNGS: Clear to auscultation bilaterally. DISCHARGE MEDICATIONS: Mirtazapine 30 mg at bedtime, calcitonin 1 spray to the left naris every 2 da ys, atovaquone 750 mg 2 times a day, Biktarvy 1 tablet daily, vitamin B12 1000 mcg daily, ferrous sul fate 325 mg daily, folic acid 1 mg daily, Medrol Dosepak, Theragran 1 tablet daily, hyoscyamine 0.125 mg sublingually every 4 hours as needed, lorazepam 0.5 mg every 4 hours as needed, Tylenol supposito ry 650 mg every 6 hours as needed, promethazine 12.5 mg every 8 hours as needed, Dulcolax 10 mg daily as needed, hydroxyzine 50 mg at bedtime as needed, lactulose 10 mg daily as needed, loperamide 2 mg 3 times a day as needed, naproxen 500 mg 2 times a day as needed and Zofran 4 mg every 6 hours as nee ded. HOSPITAL COURSE: Ms. Martinez is a pleasant 57-year-old lady who was admitted to [facility] on 08/15/2018 for hyponatremia and severe hypercalcemia. Please refer to Dr. Michael staples's history and physical note dated 08/15/2018 for further details. She was seen by Infectious Disea ses and Nephrology Services. She received treatments for hypercalcemia and hyponatremia. She was st arted on fluid restriction. Her sodium improved. CT scan of the chest, abdomen and pelvis with IV contrast on 08/16/2018 showed mild peribronchial thi ckening with filling defects within the more peripheral right upper lobe bronchi, which may be relate d to mucus plugging, mild bronchiectasis in the right upper lobe, linear and patchy densities seen at the right lung base, no evidence of lymphadenopathy, nonspecific abdominal lymphadenopathy, increase d density material within the dependent portion of the right aspect of the urinary bladder, potential ly related to contrast given, moderate amount of retained fecal material in the rectum with distentio n of the rectum and perirectal inflammatory changes. The patient was also started on atovaquone and Biktarvy by Infectious Diseases service, and she shoul d continue these medications. She continued to improve in terms of sodium level. Sodium level is 129 on the day of discharge. She was also hypokalemic, which resolved with potassium supplementation. Calcium level normalized from 14.2 on 08/15/2018 to 8.1 on 08/22/2018. She is being discharged back to [facility]. On the day of discharge, she has sodium 129, potassium 3.9, creatinine 0.74, white count 1700, hemogl obin 8.9 and platelet count 145,000. She is advised to have her sodium and calcium levels checked in 3-5 days. Many thanks for allowing me to participate in your patient's care. Please feel free to contact me wi th any questions or concerns. DISCHARGE DESTINATION: [facility], from where the patient was admitted to the hospital. TOTAL AMOUNT OF TIME SPENT COORDINATING THIS DISCHARGE: 33 minutes.
== END 2018-08-22 18:30 | DRG 643 ==
LOC: ERS 12:19 → 2NO 18:58 → T4-A 08-21 22:03
PROVIDERS: ADMIT Internal Medicine; ATTEND Internal Medicine
DX: E22.2 Syndrome of inappropriate secretion of antidiuretic hormone (principal); G93.41 Metabolic encephalopathy; B20 Human immunodeficiency virus [HIV] disease; Z68.1 Body mass index [BMI] 19.9 or less, adult; R64 Cachexia; E44.0 Moderate protein-calorie malnutrition; F02.80 Dementia in other diseases classified elsewhere, unspecified severity, without behavioral disturbance, psychotic disturbance, mood disturbance, and anxiety; F41.9 Anxiety disorder, unspecified; F32.9 Major depressive disorder, single episode, unspecified; E83.52 Hypercalcemia; E86.0 Dehydration; D72.819 Decreased white blood cell count, unspecified; E83.42 Hypomagnesemia; R62.7 Adult failure to thrive; N18.2 Chronic kidney disease, stage 2 (mild); K59.00 Constipation, unspecified; Z74.01 Bed confinement status; Z88.2 Allergy status to sulfonamides; Z87.890 Personal history of sex reassignment
CPT/HCPCS: 36415; 36416; 70450; 70551; 71045; 71260; 74177; 78306; 80048; 80053; 82306; 82310; 82533; 82550; 82553; 82652; 83605; 83735; 83880; 83930; 83935; 83970; 84100; 84165; 84166; 84443; 84484; 85025; 85048; 86361; 93005; 96360; 96361; A9503; G8978-GP-CM; G8979-GP-CK; G8996-GN-CI; G8997-GN-CI; J1650; J1940; J2405; J2920; J3475; J3489; J7050; J7506